=== PATIENT | female | born 1995 | race Caucasian/White ===

== ENCOUNTER 2020-05-18 11:59 | Observation (INO) | payer OTHER ==
[2020-05-18] MEDS ORDERED: SODIUM CHLORIDE 0.9% 1,000 ML IV STA (12:57)
[2020-05-18 13:23] LABS: Basophils % (A) 1 %; Eosinophils # (A) 0.3 k/uL (0-0.7); Eosinophils % (A) 4 %; HCT 39.9 % (34.0-46.0); HGB 13.8 gm/dL (11.4-16.0); Lymphocytes # (A) 3.1 k/uL (1.0-4.8); Lymphocytes % (A) 43 %; MCH 30.4 pg (25.0-35.0); MCHC 34.6 g/dL (31.0-37.0); Mean Platelet Volume 7.8; Monocytes # (A) 0.2 k/uL (0-1.0); Monocytes % (A) 3 %; Neutrophils # (A) 3.5 k/uL (1.3-7.7); Neutrophils % (A) 48 %; Platelet Count 230 k/uL (150-450); RBC 4.54 m/uL (3.80-5.40); RDW 12.5 % (11.5-15.5); WBC 7.2 k/uL (3.8-10.6)
--- NOTE | 2020-05-18 13:29 | ED ---
General Adult HPI - General Chief complaint: Neuro Symptoms/Deficit Stated complaint: lost feeling in legs. Time Seen by Provider: 05/18/20 12:27 Source: patient, RN notes reviewed Mode of arrival: ambulatory Limitations: no limitations - History of Present Illness Initial comments: 25-year-old female with a past medical history of Young's palsy, diabetes mellitus presents to the emergency room for a chief complaint of bilateral leg numbness and weakness. Patient states that about 2-3 weeks ago she started to have tingling below the right knee worse in the right toes. States when she walks a certain way her ankle and her right knee give out infant and she falls. States she has to walk on the lateral aspect of her foot in order for it not to give out. Patient states that about a week and a half ago she started to get the tingling in the left leg as well. Patient states she hasn't been driving because it is difficult to move her foot and press on the gas pedal. Patient states she thought this was related to her diabetes. States she was recently diagnosed with type 1 diabetes and started on insulin in August. States her blood sugars run anywhere between 204 100.Patient has no other complaints at this time including shortness of breath, chest pain, abdominal pain, nausea or vomiting, headache, or visual changes. - Related Data Home Medications Medication Instructions Recorded Confirmed Insulin Glargine,Hum.rec.anlog 30 unit SQ HS 05/18/20 05/18/20 [Lantus Solostar] Insulin Lispro [Admelog] See Protocol SQ AC-TID 05/18/20 05/18/20 Allergies Allergy/AdvReac Type Severity Reaction Status Date / Time No Known Allergies Allergy Verified 05/18/20 12:49 Review of Systems ROS Statement: Those systems with pertinent positive or pertinent negative responses have been documented in the HPI. ROS Other: All systems not noted in ROS Statement are negative. Past Medical History Past Medical History: Diabetes Mellitus 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 History of Any Multi-Drug Resistant Organisms: None Reported Past Surgical History: No Surgical Hx Reported, Orthopedic Surgery Past Psychological History: No Psychological Hx Reported Smoking Status: Current every day smoker Past Alcohol Use History: None Reported Past Drug Use History: None Reported General Exam Limitations: no limitations General appearance: alert, in no apparent distress Head exam: Present: atraumatic, normocephalic, normal inspection Eye exam: Present: normal appearance, PERRL, EOMI. Absent: scleral icterus, conjunctival injection, periorbital swelling ENT exam: Present: normal exam, mucous membranes moist Neck exam: Present: normal inspection, full ROM. Absent: tenderness, meningismus, lymphadenopathy Respiratory exam: Present: normal lung sounds bilaterally. Absent: respiratory distress, wheezes, rales, rhonchi, stridor Cardiovascular Exam: Present: regular rate, normal rhythm, normal heart sounds. Absent: systolic murmur, diastolic murmur, rubs, gallop, clicks GI/Abdominal exam: Present: soft, normal bowel sounds. Absent: distended, tenderness, guarding, rebound, rigid Neurological exam: Present: alert, oriented X3, other. Absent: normal gait (patient using lateral aspect of R foot to ambulate) Expanded Patient oriented to: Present: person, place, time Speech: Present: fluid speech Cranial nerves: EOM's Intact: Normal, Tongue Deviation: Normal, Nystagmus: Normal, Facial Sensation: Normal Cerebellar function: Finger to Nose: Normal, Heel to Mackey: Normal Upper motor neuron: Pronator Drift: Normal Sensory exam: Upper Extremity Light Touch: Normal, Upper Extremity Pin Prick: Normal, Lower Extremity Light Touch: Normal, Lower Extremity Pin Prick: Normal Motor strength exam: RUE: 5, LUE: 5, RLE: 4, LLE: 4 Course Vital Signs 05/18/20 05/18/20 12:01 15:13 Temperature 97.9 F Pulse Rate 97 85 Respiratory 18 16 Rate Blood Pressure 131/77 112/75 O2 Sat by Pulse 98 100 Oximetry Medical Decision Making - Medical Decision Making Vitals are stable. HPI and physical exam as documented. Patient is walking on the lateral aspect of the right foot because she feels her leg is going to give out. DP pulses are 2+ lower extremities, capillary refill less than 2 seconds. Sensation intact in bilateral lower extremities. She was able to walk into the hallway and back without falls over does report one fall at home. She has no other focal neurologic deficits. CT brain is negative. CBC CMP and magnesium are unremarkable. I did speak with Dr. Medina who saw patient in the emergency room. He is recommending to admit patient to medicine and he will consult on her. He is planning on doing further intervention, possibly an LP tomorrow. - Lab Data Result diagrams: 05/18/20 13:07 05/18/20 13:07 Lab Results 05/18/20 05/18/20 05/18/20 Range/Units 13:07 13:07 13:09 WBC 7.2 (3.8-10.6) k/uL RBC 4.54 (3.80-5.40) m/uL Hgb 13.8 (11.4-16.0) gm/dL Hct 39.9 (34.0-46.0) % MCV 88.0 (80.0-100.0) fL MCH 30.4 (25.0-35.0) pg MCHC 34.6 (31.0-37.0) g/dL RDW 12.5 (11.5-15.5) % Plt Count 230 (150-450) k/uL MPV 7.8 Neutrophils % 48 % Lymphocytes % 43 % Monocytes % 3 % Eosinophils % 4 % Basophils % 1 % Neutrophils # 3.5 (1.3-7.7) k/uL Lymphocytes # 3.1 (1.0-4.8) k/uL Monocytes # 0.2 (0-1.0) k/uL Eosinophils # 0.3 (0-0.7) k/uL Basophils # 0.0 (0-0.2) k/uL Sodium 132 L (137-145) mmol/L Potassium 4.2 (3.5-5.1) mmol/L Chloride 102 (98-107) mmol/L Carbon Dioxide 23 (22-30) mmol/L Anion Gap 7 mmol/L BUN 9 (7-17) mg/dL Creatinine 0.45 L (0.52-1.04) mg/dL Est GFR (CKD-EPI)AfAm >90 (>60 ml/min/1.73 sqM) Est GFR (CKD-EPI)NonAf >90 (>60 ml/min/1.73 sqM) Glucose 304 H (74-99) mg/dL Calcium 9.2 (8.4-10.2) mg/dL Magnesium 1.6 (1.6-2.3) mg/dL Total Bilirubin 0.4 (0.2-1.3) mg/dL AST 18 (14-36) U/L ALT 16 (4-34) U/L Alkaline Phosphatase 53 (38-126) U/L Total Protein 6.8 (6.3-8.2) g/dL Albumin 3.9 (3.5-5.0) g/dL Urine Color Light Yellow Urine Appearance Clear (Clear) Urine pH 5.5 (5.0-8.0) Ur Specific [place] 1.043 H (1.001-1.035) Urine Protein Negative (Negative) Urine Glucose (UA) 4+ H (Negative) Urine Ketones 3+ H (Negative) Urine Blood Negative (Negative) Urine Nitrite Negative (Negative) Urine Bilirubin Negative (Negative) Urine Urobilinogen <2.0 (<2.0) mg/dL Ur Leukocyte Esterase Small H (Negative) Urine WBC 2 (0-5) /hpf Ur Squamous Epith Cells 4 (0-4) /hpf Urine Mucus Rare H (None) /hpf Urine HCG, Qual (Not Detectd) Acetone, Qual Negative (Negative) 05/18/20 Range/Units 13:09 WBC (3.8-10.6) k/uL RBC (3.80-5.40) m/uL Hgb (11.4-16.0) gm/dL Hct (34.0-46.0) % MCV (80.0-100.0) fL MCH (25.0-35.0) pg MCHC (31.0-37.0) g/dL RDW (11.5-15.5) % Plt Count (150-450) k/uL MPV Neutrophils % % Lymphocytes % % Monocytes % % Eosinophils % % Basophils % % Neutrophils # (1.3-7.7) k/uL Lymphocytes # (1.0-4.8) k/uL Monocytes # (0-1.0) k/uL Eosinophils # (0-0.7) k/uL Basophils # (0-0.2) k/uL Sodium (137-145) mmol/L Potassium (3.5-5.1) mmol/L Chloride (98-107) mmol/L Carbon Dioxide (22-30) mmol/L Anion Gap mmol/L BUN (7-17) mg/dL Creatinine (0.52-1.04) mg/dL Est GFR (CKD-EPI)AfAm (>60 ml/min/1.73 sqM) Est GFR (CKD-EPI)NonAf (>60 ml/min/1.73 sqM) Glucose (74-99) mg/dL Calcium (8.4-10.2) mg/dL Magnesium (1.6-2.3) mg/dL Total Bilirubin (0.2-1.3) mg/dL AST (14-36) U/L ALT (4-34) U/L Alkaline Phosphatase (38-126) U/L Total Protein (6.3-8.2) g/dL Albumin (3.5-5.0) g/dL Urine Color Urine Appearance (Clear) Urine pH (5.0-8.0) Ur Specific [place] (1.001-1.035) Urine Protein (Negative) Urine Glucose (UA) (Negative) Urine Ketones (Negative) Urine Blood (Negative) Urine Nitrite (Negative) Urine Bilirubin (Negative) Urine Urobilinogen (<2.0) mg/dL Ur Leukocyte Esterase (Negative) Urine WBC (0-5) /hpf Ur Squamous Epith Cells (0-4) /hpf Urine Mucus (None) /hpf Urine HCG, Qual Not Detected (Not Detectd) Acetone, Qual (Negative) Disposition Clinical Impression: Paresthesia, Bilateral leg weakness Disposition: ADMITTED IP TO THIS HOSP Is patient prescribed a controlled substance at d/c from ED?: No Referrals: Chaparro Barney DO [Primary Care Provider] - 1-2 days Time of Disposition: 16:20
[2020-05-18 13:34] LABS: ALT 16 U/L (4-34); AST 18 U/L (14-36); African American GFR (CKD) >90 (>60 ml/min/1.73 sqM); Albumin 3.9 g/dL (3.5-5.0); Alkaline Phosphatase 53 U/L (38-126); Anion Gap 7 mmol/L; Blood Urea Nitrogen 9 mg/dL (7-17); Calcium 9.2 mg/dL (8.4-10.2); Carbon Dioxide 23 mmol/L (22-30); Chloride 102 mmol/L (98-107); Glucose 304 mg/dL (74-99); Magnesium 1.6 mg/dL (1.6-2.3); Non-African American GFR(CKD) >90 (>60 ml/min/1.73 sqM); Potassium 4.2 mmol/L (3.5-5.1); Sodium 132 mmol/L (137-145); Total Bilirubin 0.4 mg/dL (0.2-1.3); Total Protein 6.8 g/dL (6.3-8.2)
[2020-05-18 13:50] LABS: Appearance,Urine Clear (Clear); Bilirubin,Urine Negative (Negative); Blood,Urine Negative (Negative); Color,Urine Light Yellow; Glucose,Urine (UA) 4+ (Negative); Leukocyte Esterase,Urine Small (Negative); Mucus,Urine Rare /hpf; Nitrite,Urine Negative (Negative); PH, Urine 5.5 (5.0-8.0); Protein,Urine Negative (Negative); Specific Gravity,Urine 1.043 (1.001-1.035); Squamous Epithelial Cell,Urine 4 /hpf (0-4); Urobilinogen,Urine <2.0 mg/dL (<2.0); WBC,Urine 2 /hpf (0-5)
[2020-05-18 13:55] LABS: Ketones,Urine 3+ (Negative)
--- NOTE | 2020-05-18 13:58 | CT ---
EXAMINATION TYPE: CT brain wo con DATE OF EXAM: 05/18/2020 COMPARISON: None HISTORY: 25-year-old female leg weakness TECHNIQUE: Examination was done in axial plane without intravenous contrast. Coronal and sagittal r econstructions performed. CT DLP: 1060.4 mGycm Automated exposure control for dose reduction was used. FINDINGS: There is no evidence of acute intracranial hemorrhage, acute ischemic changes, mass, mass-effect, or extra-axial fluid collection. There is no effacement of cerebral sulci or basal subarachnoid cister ns. There is no hydrocephalus. There is no midline shift. Nur-white matter distinction is preserv ed. Leftward nasal septal deviation. Paranasal sinuses and mastoid air cells are well pneumatized. Orbits and globes are intact. IMPRESSION: No acute intracranial abnormality seen.
[2020-05-18] MEDS ORDERED: NALOXONE 0.4 MG/ML 1 ML VIAL IV PRN (16:15)
--- NOTE | 2020-05-18 16:54 | P.CNNES ---
History of Present Illness Consult date: 05/18/20 Requesting physician: Mike Mckeon Reason for Consult: Paresthesias bilateral lower extremities, weakness History of Present Illness: Patient is a 25-year-old female who was diagnosed with 1diabetes on 09/02/2019, presented to the hospital with 2-3 week history of progressive numbness and weakness of lower extremities. Patient states her symptoms started in the right leg with numbness from the knee down all the way to the foot. She assumed it from diabetes and did not pay any attention. About 1-1/2 weeks ago, her left leg also became numb, from knee down to the foot. She has difficulty with walking, with tendency to fall, almost fell multiple times, although actually fell only one time. Patient states her knees buckle up. She denies any numbness in the upper extremities, although feels weakness in both upper and lower extremities. She has difficulty with driving, as she cannot feel the right foot pressing on the gas. Her balance is off. She feels that her toes are more numb as compared to the rest of the lower leg. Denies any significant low back pain. Patient has smoked 1 pack per day for 7 years, drinks alcohol very occasionally. Blood test revealed normal CBC, sodium 132 potassium 4.2, normal renal functions, glucose 304, normal hepatic panel. UA showed 4+ glucose, 3+ ketones and small amount of leukocyte Estrace. Acetone negative. Review of Systems Patient denies any fever or chills. Denies any low back pain. She does have migraines. Patient denies any recent upper respiratory infection, sinus issues, or UTI. Denies headache, problem with the vision, hoarseness, sore throat, dysphagia, diplopia. Denies any problems with bowel or bladder control. She does have some frequency, which she attributes to her previous childbirths, is not worse in the last few weeks. Denies nausea vomiting diarrhea. All other review of systems unremarkable. Past Medical History Past Medical History: Diabetes Mellitus 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 History of Any Multi-Drug Resistant Organisms: None Reported Past Surgical History: No Surgical Hx Reported, Orthopedic Surgery Past Psychological History: No Psychological Hx Reported Smoking Status: Current every day smoker Past Alcohol Use History: None Reported Past Drug Use History: None Reported Medications and Allergies Home Medications Medication Instructions Recorded Confirmed Type Insulin Glargine,Hum.rec.anlog 30 unit SQ HS 05/18/20 05/18/20 History [Lantus Solostar] Insulin Lispro [Admelog] See Protocol SQ AC-TID 05/18/20 05/18/20 History Allergies Allergy/AdvReac Type Severity Reaction Status Date / Time No Known Allergies Allergy Verified 05/18/20 12:49 Physical Examination - Vital Signs Vital Signs: Vital Signs Temp Pulse Resp BP Pulse Ox 05/18/20 15:13 85 16 112/75 100 05/18/20 12:01 97.9 F 97 18 131/77 98 Intake and Output 05/18/20 05/18/20 05/18/20 06:59 14:59 22:59 Other: Weight 76.204 kg On examination patient is a young female, in no acute distress. Patient is alert awake oriented to time place and person. Speech and language functions are normal. Attention, concentration and fund of knowledge is adequate. On cranial nerve examination pupils are round and reacting to light, visual nelson are full on confrontation, extraocular muscles are intact with no nystagmus. Face is symmetric, tongue protrudes to the midline. Palatal elevation sensation normal, hearing and shoulder shrug normal. Facial sensation is normal. On muscle strength testing there is no pronator drift and the strength is normal in the arms except sports recruiter which is 5-bilaterally. In the lower limbs right/left hip flexion 5-/5-, hip abduction, hip adduction, knee extension are all 5/5. Ankle dorsiflexion 4-3+/4+, toe extension 3+/4 to 4+, Peronei 4/5, inversion 4/5. Deep tendon reflexes are symmetric, trace to 1 at both biceps and brachioradialis, 1+ to 2 at triceps, 1-1+ at bilateral knees, and trace at ankles bilaterally. Lantus are downgoing. Sensory touch is decreased from toes up to knees bilaterally. No ataxia for [id number] or rhqy-fl-[id number] testing. Tone is decreased in the right leg. Bulk of muscles is normal. Gait deferred. On general examination there is no carotid bruit or murmur, peripheral pulses are present. No peripheral edema. Chest is clear, abdomen soft nontender. Results - Laboratory Findings CBC and BMP: 05/18/20 13:07 05/18/20 13:07 Abnormal Lab Findings: Abnormal Labs 05/18/20 05/18/20 13:07 13:09 Sodium 132 L Creatinine 0.45 L Glucose 304 H Ur Specific [place] 1.043 H Urine Glucose (UA) 4+ H Urine Ketones 3+ H Ur Leukocyte Esterase Small H Urine Mucus Rare H Assessment and Plan Assessment: * 25-year-old female with recent diagnosis of type 1 diabetes since August 2019, has developed 2 weeks history of progressive numbness of bilateral lower limbs (knees down), with bilateral distal lower extremity weakness, right worse than left. Reflexes are overall hypoactive but still present. Rule out diabetic neuropathy versus mononeuritis multiplex versus AIDP. Plan: * Patient will undergo detailed blood test to evaluate for inflammatory causes. * Hemoglobin A1c * Lumbar puncture to evaluate for cells, glucose, proteins, MS panel, rule out AIDP. * Patient will need EMG and nerve conductions of bilateral lower extremities. * Patient recommended not to sit with legs crossed, as it can affect the common peroneal nerves at the fibular head.
[2020-05-18 17:49] LABS: Glucose,Whole Blood 199 mg/dL (75-99)
[2020-05-18] MEDS: SODIUM CHLORIDE 0.9% 1,000 ML IV SCH (18:35)
[2020-05-18] MEDS: INSULIN ASPART (NovoLOG) 100 UNIT/ML VIAL SQ SCH ×2 (18:37→21:01)
[2020-05-18] MEDS ORDERED: TEMAZEPAM 15 MG CAP PO PRN (20:14)
[2020-05-18] MEDS ORDERED: ALPRAZolam 0.25 MG TAB PO PRN (20:14)
[2020-05-18 20:22] LABS: Glucose,Whole Blood 243 mg/dL (75-99)
--- NOTE | 2020-05-18 20:26 | XR ---
EXAMINATION TYPE: XR chest 1V portable DATE OF EXAM: 05/18/2020 COMPARISON: NONE HISTORY: Pain TECHNIQUE: Single view FINDINGS: Heart and mediastinum are normal. Lungs are clear. Diaphragm is normal. Bony thorax appears normal. There are chest leads. IMPRESSION: Normal chest.
[2020-05-18] MEDS: INSULIN DETEMIR (LEVEMIR) 100 UNIT/ML SYR SQ SCH (21:01)
[2020-05-18] MEDS: ACETAMINOPHEN TAB 500 MG TAB PO PRN (21:01)
[2020-05-18] MEDS: HEPARIN SODIUM,PORCINE 5,000 UNIT/ML 1 ML VIAL SQ SCH (21:34)
--- NOTE | 2020-05-18 22:27 | HP ---
HISTORY AND PHYSICAL DATE OF SERVICE: 05/18/2020 CHIEF COMPLAINTS: Bilateral leg weakness and loss of feeling. HISTORY OF PRESENT ILLNESS: This 25-year-old woman with a past medical history of multiple medical problems, including recently diagnosed diabetes since August, history of Young's palsy, history of nicotine dependence, being followed by Dr. Barney in the outpatient setting, is complaining of bilateral leg weakness and numbness; patient unable to move the legs. The patient also had multiple falls. Numbness is most mostly noted below both knees, and the sensation is reduced up to 70% on the right lower leg and up to 40% on the left lower leg. The patient was admitted for further evaluation and treatment. There is no history of any fever, rigor or chills. No history of headache, loss of consciousness, seizures. No history of any contact with COVID-19. After admission sodium was 132. Blood sugar was elevated at 304. UA was noted. COVID-19 was negative. Serum acetone was also negative. PAST MEDICAL HISTORY: History of recently diagnosed diabetes mellitus, type 2, history of Young's palsy. MEDICATIONS: Medications prior to admission include Lispro before meals t.i.d. and Lantus 30 subcutaneously at bedtime. ALLERGIES: NONE. FAMILY HISTORY: No history of heart disease or strokes in the family. History of diabetes mellitus in the family. SOCIAL HISTORY: History of smoking. No history of alcohol intake. REVIEW OF SYSTEMS: ENT: No diminished hearing. No diminished vision. CARDIOVASCULAR SYSTEM: No angina, palpitations. RESPIRATORY SYSTEM: No cough, hemoptysis. GI: No nausea, vomiting. : No dysuria or retention. NERVOUS SYSTEM: As mentioned earlier. ALLERGY/IMMUNOLOGY: No asthma, hayfever. MUSCULOSKELETAL: As mentioned earlier. HEMATOLOGY/ONCOLOGY: No history of anemia. ENDOCRINE: As mentioned earlier. CONSTITUTIONAL: As mentioned earlier. DERMATOLOGY: Negative. RHEUMATOLOGY: Negative. PSYCHIATRY: As mentioned earlier. PHYSICAL EXAMINATION: Patient is alert, oriented x3. The pulse is 97, blood pressure 131/77, respiration 18, temperature 97.9, pulse ox 98% on room air. HEENT: Conjunctivae normal. NECK: No jugular venous distention. CARDIOVASCULAR SYSTEM: S1, S2 muffled. RESPIRATORY SYSTEM: Breath sounds diminished at the bases. No rhonchi. No crackles. ABDOMEN: Soft, non-tender. No mass palpable. LEGS: No edema. No swelling. NERVOUS SYSTEM: Higher functions as mentioned earlier. Upper limbs are normal. Lower limbs power is grade 4, especially in these upper limbs and sensory abnormality, as mentioned earlier. Gait is ataxic. No signs of cerebellar dysfunction. No significant finger-nose incoordination. SKIN: No ulcer, rash, bleeding. JOINTS: No active deforming arthropathy. LYMPHATICS: No lymph node palpable in neck, axillae or groin. LABS: Sodium 132, glucose 304. ASSESSMENT: 1. Bilateral diabetic peripheral neuropathy, possibly with gait dysfunction and falls. 2. Diabetes mellitus, type 1, uncontrolled with hyperglycemia. 3. Hyponatremia. 4. History of Young's palsy. 5. History of continued nicotine dependence. 6. FULL CODE. RECOMMENDATIONS AND DISCUSSION: In this 25-year-old woman who presented with multiple complex medical issues, we will monitor the patient closely, continue the current medications, continue symptomatic treatment. I recommend resuming the Levemir as well as scale also. Neurology evaluation. Repeat labs. Possible lumbar puncture. A CT of the brain was also done which showed no acute abnormality. Prognosis guarded. Further recommendations to follow. A copy of this dictation is being forwarded to Dr. Barney, who is the primary physician. MMODL / IJN: [id number] /
[2020-05-19 06:20] LABS: Glucose,Whole Blood 186 mg/dL (75-99)
[2020-05-19] MEDS: INSULIN ASPART (NovoLOG) 100 UNIT/ML VIAL SQ SCH ×4 (06:35→21:18)
[2020-05-19] MEDS: ACETAMINOPHEN TAB 500 MG TAB PO PRN ×2 (06:37→16:49)
[2020-05-19] MEDS: PANTOPRAZOLE 40 MG TABLET PO SCH (06:38)
[2020-05-19 07:36] LABS: Basophils % (A) 1 %; Eosinophils # (A) 0.3 k/uL (0-0.7); Eosinophils % (A) 5 %; HCT 35.9 % (34.0-46.0); HGB 12.3 gm/dL (11.4-16.0); Lymphocytes # (A) 2.9 k/uL (1.0-4.8); Lymphocytes % (A) 46 %; MCH 30.8 pg (25.0-35.0); MCHC 34.2 g/dL (31.0-37.0); Mean Platelet Volume 7.5; Monocytes # (A) 0.2 k/uL (0-1.0); Monocytes % (A) 4 %; Neutrophils # (A) 2.7 k/uL (1.3-7.7); Neutrophils % (A) 43 %; Platelet Count 184 k/uL (150-450); RBC 3.99 m/uL (3.80-5.40); RDW 12.2 % (11.5-15.5); WBC 6.3 k/uL (3.8-10.6)
[2020-05-19 07:46] LABS: African American GFR (CKD) >90 (>60 ml/min/1.73 sqM); Anion Gap 2 mmol/L; Blood Urea Nitrogen 12 mg/dL (7-17); Calcium 8.4 mg/dL (8.4-10.2); Carbon Dioxide 27 mmol/L (22-30); Chloride 108 mmol/L (98-107); Glucose 188 mg/dL (74-99); Non-African American GFR(CKD) >90 (>60 ml/min/1.73 sqM); Potassium 3.9 mmol/L (3.5-5.1); Sodium 137 mmol/L (137-145)
[2020-05-19] MEDS: SODIUM CHLORIDE 0.9% 1,000 ML IV SCH ×2 (08:51→17:13)
[2020-05-19] MEDS: HEPARIN SODIUM,PORCINE 5,000 UNIT/ML 1 ML VIAL SQ SCH ×2 (08:52→21:18)
[2020-05-19 10:02] LABS: Prothrombin Time 10.6 sec (9.0-12.0)
[2020-05-19 11:56] LABS: Glucose,Whole Blood 179 mg/dL (75-99)
--- NOTE | 2020-05-19 15:16 | FL ---
PROCEDURE: Lumbar puncture. DATE: 05/19/2020 CLINICAL HISTORY: 25-year-old female with progressive lower extremity weakness and numbness. Trouble walking. COMPLICATIONS: None. SEDATION: See nursing record. The patient and the patient's vital signs were monitored by qualified [facility] radiology personnel. TECHNIQUE: The procedure and potential risks were explained to patient and an informed consent was obtained with teach back. Site and side was verified. A time out was performed. The patient was placed prone on the fluoroscopy table and initially, the L3-L4 level was localized an d the skin was marked and was prepped and draped in the usual sterile fashion. Lidocaine was used for local anesthesia. Utilizing fluoroscopic guidance a 22-gauge spinal needle was placed through the skin. Multiple attempts were made in accessing the subarachnoid space unsuccessfully. A second radiologist made attempts as well. Bone was repeatedly contacted despite widely a patent appearance to the interl aminar space on fluoroscopy. Both sides at L3-L4 were attempted. Subsequently, the left L4-L5 level was attempted with eventual access of the the subarachnoid space. Approximately 9 mL of clear, colorless cerebral spinal fluid was obtained. The patient tolerated the procedure well and was sent back to inpatient room in [facility]. The fluid was sent to the lab for analysis. The estimated blood loss was minimal. The patient's condition was unchanged following the procedure. Fluoroscopy time: 9 minutes 4 seconds Total images: 1 IMPRESSION: Successful accumulation of 9 mL of clear CSF. There was difficulty in accessing the subarachnoid spac e at L3-L4. Successful access was obtained at L4-L5.
[2020-05-19 15:49] LABS: Glucose,CSF 102 mg/dL (40-70); Total Protein,CSF 37 mg/dL (12-60)
--- NOTE | 2020-05-19 15:51 | P.PN ---
Subjective Progress Note Date: 05/19/20 Patient was seen for a follow-up. Offers no new complaints. Continues to have weakness of bilateral lower limbs, with numbness of bilateral lower limbs up to below knees bilaterally. Patient wants to go home, as she has 2 children aged 5 years and 18 months. 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 Patient's children are with her aunt. Objective - Vital Signs Vital signs: Vital Signs Temp 98.7 F 05/19/20 12:00 Pulse 72 05/19/20 14:24 Resp 16 05/19/20 14:24 BP 113/78 05/19/20 14:24 Pulse Ox 98 05/19/20 14:24 Intake & Output 05/18/20 05/19/20 05/19/20 18:59 06:59 18:59 Intake Total 240 540 250 Output Total 300 Balance 240 540 -50 Weight 76.204 kg 76.8 kg Intake: Oral 240 540 250 Output: Urine 300 Other: Voiding Method Toilet Toilet # Voids 2 - Exam Patient's mental status, speech and language functions are normal. Patient has a flat affect. Appears somewhat depressed. Muscle strength is normal in the upper limbs. Patient's hip flexion, knee extension, adduction and abduction are normal. (Right/left) ankle dorsiflexion 4+5-/5, peronei 4+/5, inversion 4+5-/5-, toe extension 4-/4+. Patient's reflexes are trace at the biceps, absent brachioradialis, 1 at the right knee, absent left knee reflex. Both ankles are normal absent even with reinforcement. - Labs CBC & Chem 7: 05/19/20 06:53 05/19/20 06:53 Labs: Abnormal Lab Results - Last 24 Hours (Table) 05/18/20 05/18/20 05/19/20 Range/Units 17:47 20:20 06:19 Chloride (98-107) mmol/L Glucose (74-99) mg/dL POC Glucose (mg/dL) 199 H 243 H 186 H (75-99) mg/dL 05/19/20 05/19/20 Range/Units 06:53 11:46 Chloride 108 H (98-107) mmol/L Glucose 188 H (74-99) mg/dL POC Glucose (mg/dL) 179 H (75-99) mg/dL Assessment and Plan Assessment: * 25-year-old female with recent diagnosis of type 1 diabetes since August 2019, has developed 2 weeks history of progressive numbness of bilateral lower limbs (knees down), with bilateral distal lower extremity weakness, right worse than left. Reflexes are overall hypoactive but were still present yesterday. Rule out diabetic neuropathy versus mononeuritis multiplex versus AIDP/GBS. Patient's reflexes have became further worse today, raising concern for AIDP/GBS. However her muscle strength appears to be slightly better. Plan: * Await blood test results, including Hemoglobin A1c * Lumbar puncture has been completed, results pending. * Patient will need EMG and nerve conductions of bilateral lower extremities. * If CSF proteins are elevated, patient will be started treatment with IVIG. Addendum @ 5 PM: Patient's spinal fluid is clear, colorless, white cells 2, RBC 0. Total protein is 37 (12-60), which is completely normal. CSF glucose is 102. As the spinal fluid proteins is normal, not very sure if we are dealing with AIDP/GBS. We will await blood test results, and decide regarding further management in the morning. Neurology will follow.
[2020-05-19 15:58] LABS: Appearance,CSF Clear; CSF Tube Number 4; Nucleated Cells, CSF 2 u/L (0-5); Red Blood Cell,CSF 0 u/L (0-10)
[2020-05-19] MEDS: MULTIVITAMINS, THERA 1 EACH TAB PO SCH (16:49)
[2020-05-19] MEDS: FOLIC ACID 1 MG TAB PO SCH (16:49)
[2020-05-19] MEDS: THIAMINE 100 MG TAB PO SCH (16:49)
[2020-05-19 17:01] LABS: Glucose,Whole Blood 306 mg/dL (75-99)
[2020-05-19] MEDS: BUTALB/APAP/CAFF 50-325-40MG TAB PO PRN ×2 (17:19→21:17)
--- NOTE | 2020-05-19 17:19 | PN ---
PROGRESS NOTE DATE OF SERVICE: 05/19/2020 This 25-year-old woman who was admitted with bilateral leg weakness and numbness is being evaluated for Guillian-[place] syndrome. Lumbar puncture was arranged by Neurology. Patient also had diabetes mellitus, uncontrolled; the possibility of acute peripheral neuropathy is also being considered. Past medical history reviewed. PHYSICAL EXAMINATION: On exam, alert and oriented x3. Pulse 72, blood pressure 113/70, respiration 16, temperature normal, pulse ox 98% on room air. HEENT: Conjunctivae normal. NECK: No jugular venous distention. CARDIOVASCULAR SYSTEM: S1, S2 muffled. RESPIRATORY SYSTEM: Breath sounds diminished at the bases. No rhonchi. No crackles. ABDOMEN: Soft, non-tender. LEGS: Bilateral weakness and numbness, right more than the left. LYMPHATICS: No lymph node palpable in neck, axillae or groin. SKIN: No ulcer, rash, bleeding. JOINTS: No active deforming arthropathy. LABS: Accu-Cheks 179. CSF glucose 102, protein 37. ASSESSMENT: 1. Bilateral leg weakness, possibly diabetic peripheral neuropathy. 2. Possible acute Guillian-[place] syndrome. 3. Diabetes mellitus, type 1, uncontrolled with hyperglycemia. 4. Hyponatremia. 5. History of Young's palsy. 6. History of nicotine dependence. 7. FULL CODE. RECOMMENDATIONS AND DISCUSSION: I recommend to continue current medications, continue with the monitoring, symptomatic treatment. Closely follow with Neurology. Await cultures. Prognosis is guarded. This patient will require more than 2 nights of hospital stay for diagnosis and treatment of the above-mentioned problems. The patient is quite unsteady on his feet. This patient has significant weakness of both lower limbs in a young patient, so I would strongly recommend full inpatient admission for evaluation and treatment of the above-mentioned medical issues. Prognosis guarded. MMODL / IJN: [id number] /
[2020-05-19 18:29] VITALS: RESP 18
[2020-05-19 20:04] LABS: Glucose,Whole Blood 157 mg/dL (75-99)
[2020-05-19 21:04] LABS: Folate, Serum 14.7 ng/mL
[2020-05-19] MEDS: INSULIN DETEMIR (LEVEMIR) 100 UNIT/ML SYR SQ SCH (21:19)
[2020-05-19 22:54] LABS: Hemoglobin A1C 12.8 % (4.0-6.0)
[2020-05-20 01:50] LABS: Protein, Total 5.4 g/dL (6.2-8.2)
[2020-05-20] MEDS: ACETAMINOPHEN TAB 500 MG TAB PO PRN ×2 (03:51→10:19)
[2020-05-20 05:56] LABS: Glucose,Whole Blood 304 mg/dL (75-99)
[2020-05-20] MEDS: INSULIN ASPART (NovoLOG) 100 UNIT/ML VIAL SQ SCH ×2 (06:11→12:10)
[2020-05-20] MEDS: PANTOPRAZOLE 40 MG TABLET PO SCH (06:11)
[2020-05-20 07:38] LABS: Basophils % (A) 0 %; Eosinophils # (A) 0.2 k/uL (0-0.7); Eosinophils % (A) 3 %; HCT 38.8 % (34.0-46.0); HGB 12.8 gm/dL (11.4-16.0); Lymphocytes # (A) 2.9 k/uL (1.0-4.8); Lymphocytes % (A) 41 %; MCV 90.8 fL (80.0-100.0); Mean Platelet Volume 7.8; Monocytes # (A) 0.2 k/uL (0-1.0); Monocytes % (A) 3 %; Neutrophils # (A) 3.5 k/uL (1.3-7.7); Neutrophils % (A) 51 %; Platelet Count 199 k/uL (150-450); RBC 4.27 m/uL (3.80-5.40); RDW 12.2 % (11.5-15.5); WBC 6.9 k/uL (3.8-10.6)
[2020-05-20 07:48] LABS: African American GFR (CKD) >90 (>60 ml/min/1.73 sqM); Anion Gap -1 mmol/L; Blood Urea Nitrogen 13 mg/dL (7-17); Calcium 9.1 mg/dL (8.4-10.2); Carbon Dioxide 27 mmol/L (22-30); Chloride 109 mmol/L (98-107); Glucose 227 mg/dL (74-99); Non-African American GFR(CKD) >90 (>60 ml/min/1.73 sqM); Potassium 4.3 mmol/L (3.5-5.1); Sodium 135 mmol/L (137-145)
[2020-05-20] MEDS: BUTALB/APAP/CAFF 50-325-40MG TAB PO PRN (07:59)
[2020-05-20] MEDS: HEPARIN SODIUM,PORCINE 5,000 UNIT/ML 1 ML VIAL SQ SCH (08:06)
[2020-05-20] MEDS: SODIUM CHLORIDE 0.9% 1,000 ML IV SCH (08:06)
[2020-05-20] MEDS ORDERED: IBUPROFEN 400 MG TAB PO PRN (08:46)
[2020-05-20] MEDS ORDERED: NICOTINE 14MG/24HR PATCH TRANSDERM SCH (09:00)
[2020-05-20 11:32] VITALS: BP 120/63; PULSE 68; TEMP 98.1
[2020-05-20 11:52] VITALS: BMI 25.5
[2020-05-20 12:06] LABS: Glucose,Whole Blood 217 mg/dL (75-99)
[2020-05-20] MEDS: THIAMINE 100 MG TAB PO SCH (12:10)
[2020-05-20] MEDS: FOLIC ACID 1 MG TAB PO SCH (12:10)
[2020-05-20] MEDS: MULTIVITAMINS, THERA 1 EACH TAB PO SCH (12:10)
--- NOTE | 2020-05-20 12:35 | P.PN ---
Subjective Progress Note Date: 05/20/20 Patient states her symptoms have much improved. Numbness in the lower legs from knees down has much improved with only slight tingling sensation. Patient feels her ankles and toes are also improved from motor standpoint. Complains of some back soreness. Patient wants to go home, as she has 2 children aged 5 years and 18 months. 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 Patient's children are with her aunt. Objective - Vital Signs Vital signs: Vital Signs Temp 98.1 F 05/20/20 11:31 Pulse 68 05/20/20 11:31 Resp 18 05/20/20 11:31 BP 120/63 05/20/20 11:31 Pulse Ox 98 05/20/20 11:31 Intake & Output 05/19/20 05/20/20 05/20/20 18:59 06:59 18:59 Intake Total 250 950 500 Output Total 300 300 Balance -50 650 500 Weight 76.3 kg 76.3 kg Intake: Oral 250 950 500 Output: Urine 300 300 Other: Voiding Method Toilet Toilet # Voids 2 - Exam Patient's mental status, speech and language functions are normal. Muscle strength is normal in the upper limbs. Patient's strength in the lower extremities also appears normal including ankles and toes. Ankle dorsiflexion, inversion and eversion all appears normal bilaterally. Patient does appear to be diffusely areflexic at this time. - Labs CBC & Chem 7: 05/20/20 07:01 05/20/20 07:01 Labs: Abnormal Lab Results - Last 24 Hours (Table) 05/19/20 05/19/20 05/19/20 Range/Units 06:53 14:37 15:00 Sodium (137-145) mmol/L Chloride (98-107) mmol/L Glucose (74-99) mg/dL POC Glucose (mg/dL) (75-99) mg/dL Hemoglobin A1c 12.8 H (4.0-6.0) % Total Protein (PEP) 5.4 L (6.2-8.2) g/dL CSF Glucose 102 H (40-70) mg/dL 05/19/20 05/19/20 05/20/20 Range/Units 16:56 20:01 05:55 Sodium (137-145) mmol/L Chloride (98-107) mmol/L Glucose (74-99) mg/dL POC Glucose (mg/dL) 306 H 157 H 304 H (75-99) mg/dL Hemoglobin A1c (4.0-6.0) % Total Protein (PEP) (6.2-8.2) g/dL CSF Glucose (40-70) mg/dL 05/20/20 05/20/20 Range/Units 07:01 11:56 Sodium 135 L (137-145) mmol/L Chloride 109 H (98-107) mmol/L Glucose 227 H (74-99) mg/dL POC Glucose (mg/dL) 217 H (75-99) mg/dL Hemoglobin A1c (4.0-6.0) % Total Protein (PEP) (6.2-8.2) g/dL CSF Glucose (40-70) mg/dL Microbiology - Last 24 Hours (Table) 05/19/20 14:37 CSF Gram Stain - Preliminary Cerebral Spinal Fluid CSF Culture - Preliminary 05/19/20 11:00 Urine Culture - Preliminary Urine,Clean Catch Assessment and Plan Assessment: * Type 1 diabetes, poorly controlled * Peripheral polyneuropathy, possible diabetes related, rule out inflammatory causes. Plan: * Patient's spinal fluid is clear, colorless, white cells 2, RBC 0. Total p rotein is 37 (12-60), which is completely normal. CSF glucose is 102. Guillain-[place] syndrome appears less likely with normal proteins. Patient's sensations with numbness and tingling in the lower extremities has significantly improved. Her muscle strength has also improved and on examination appears normal bilaterally. However patient is diffusely areflexic. As patient has clinically improved, and with normal spinal fluid protein, treatment with IVIG is not indicated. Recommend patient follow up with neurologist as an outpatient for EMG and nerve conduction studies of bilateral lower limbs to evaluate for demyelinating versus axonal type of neuropathy. If she does have demyelinating polyneuropathy, and especially if symptoms gets worse, then IVIG could still be considered as an outpatient. * Patient definitely needs to follow-up with her primary physician to optimize control of diabetes, to target A1c <7.0. * Patient's B12 is 554, folate 14.7, ANDRES negative, RPR negative. Rest of the CSF and blood tests results are still pending. * Clear for patient to be discharged home, and follow-up with a neurologist in 1-2 weeks.
--- NOTE | 2020-05-20 19:21 | DS ---
DISCHARGE SUMMARY DATE OF SERVICE: 05/20/2020. FINAL DIAGNOSES: 1. Bilateral leg weakness, possible diabetic peripheral neuropathy. 2. Guillain [place] syndrome unlikely per Neurology. 3. Diabetes mellitus type 2, uncontrolled with hyperglycemia. 4. Hyponatremia. 5. History of Young's palsy. 6. History of nicotine dependence. 7. FULL CODE. DISCHARGE DISPOSITION: Patient will be discharged in stable condition with guarded prognosis. Neurology cleared the patient. HISTORY OF PRESENT ILLNESS: This 25-year-old woman with a past medical history of multiple medical problems admitted with bilateral leg weakness. The patient was evaluated. Peripheral neuropathy considered. Dr. Medina from neurology saw the patient and because of concerns of the Guillain [place] syndrome, lumbar puncture was done. The test were basically negative including the protein which was only 37. Patient was treated with insulin. Patient improved significantly. Hemoglobin A1c was found to be 12.8. Recommended endocrine consultation and possible consideration for insulin pump also at this time. On exam, vitals are stable. Cardiovascular: S1, S2. Abdomen soft. Nervous system: Minimal weakness and numbness on the left present. DISCHARGE ADVICE AND MEDICATIONS: 1. Diet is cardiac. 2. Activity limited until followup. 3. Follow up with Dr. Moore in 1 week. 4[address] Follow up Dr. Chaparro Barney in 1-2 days. 5. Follow up with Dr. Ware Neurology as recommended. DISCHARGE MEDICATIONS: 1. Admelog as before. 2. Lantus 30 units subcu q.h.s. 3. Butalbital 50 mg q.4 p.r.n. 4. Folic acid 1 mg daily. 5. Motrin p.r.n. 6. Multivitamins one p.o. daily. 7. Tylenol p.r.n. 8. Vitamin B1 100 mg p.o. daily. MMODL / IJN: [id number] /
[2020-05-23 13:06] LABS: IgG - CSF 1.7 mg/dL (0.0 - 3.4); IgG Synthesis Rate 0.04 mg/day (0.00 - 3.00); IgG/Albumin Index (CSF) 0.73 (0.00 - 0.77); Immunoglobulin G 830 mg/dL (700 - 1600)
[2020-05-23 15:02] LABS: Albumin 3.17 g/dL (3.80-4.90); Gamma Globulin 0.76 g/dL (0.70-1.50)
[2020-05-24 10:41] LABS: VDRL, Qualitative CSF Nonreactive (Nonreactive)
== END 2020-05-20 13:07 | disposition home or self-care (01) ==
LOC: EC 11:59 → 3SCARD 16:15
PROVIDERS: ADMIT Hospitalist; ATTEND Hospitalist
DX: R20.2 Paresthesia of skin (principal); R53.1 Weakness; E87.1 Hypo-osmolality and hyponatremia; E10.65 Type 1 diabetes mellitus with hyperglycemia; G51.0 Bell's palsy; Z20.828 Contact with and (suspected) exposure to other viral communicable diseases; F17.210 Nicotine dependence, cigarettes, uncomplicated; Z91.81 History of falling; Z79.4 Long term (current) use of insulin; Z83.3 Family history of diabetes mellitus
CPT/HCPCS: 96372; 99285; 36415; 83921; 87496; 87498; 87529; 87798 ×2; 86592; 88108; 84157; 80053; 80048 ×2; 82945; 82040; 82042; 82784 ×4; 83916; 82607; 82746; 82164; 82009; 83735; 85025 ×3; 85610; 89050; 81001; 81025; 87252; 86618; 84165; 86780; 86038; 87070; 87086; 87205; 87077; 87186; 86334; 83036; 87635; 62328; 71045; 70450; G0378 ×3; S4990; J2001; J1644

== ENCOUNTER → 2021-06-29 | Outpatient (CLI) | payer OTHER ==
[2021-06-29 18:56] LABS: Chol/HDL Ratio 3.32 Ratio; Glucose 71 mg/dL (70-110); LDL Cholesterol,Calculated 113.1 mg/dL (0.0-131.0); VLDL Calculation 18.88 mg/dL (5.00-40.00)
[2021-06-30 00:18] LABS: Microalbumin Creatinine Ratio <30 mg/g Creat (0-30); Urine Creatinine 10.8 mg/dL (28.0-217.0)
[2021-06-30 08:25] LABS: C-Peptide 0.11 ng/mL (0.81-3.85)
== END | disposition home or self-care (01) ==
LOC: LABWHC1 10:43
PROVIDERS: ATTEND Family Medicine
DX: E10.40 Type 1 diabetes mellitus with diabetic neuropathy, unspecified (principal); R53.83 Other fatigue
CPT/HCPCS: 36415; 80061; 82043; 82306; 82570; 82947; 83036; 84439; 84443; 84681

== ENCOUNTER 2021-08-24 09:37 | Inpatient (IN) | payer OTHER ==
[2021-08-24 09:50] LABS: Glucose,Whole Blood 517 mg/dL (75-99)
[2021-08-24] MEDS ORDERED: SODIUM CHLORIDE 0.9% 2,500 ML IV STA (10:44)
[2021-08-24] MEDS ORDERED: ACETAMINOPHEN TAB 325 MG TAB PO STA (10:44)
[2021-08-24 10:53] LABS: Basophils # (A) 0.1 k/uL (0-0.2); Basophils % (A) 0 %; Eosinophils % (A) 0 %; HCT 46.4 % (34.0-46.0); HGB 15.1 gm/dL (11.4-16.0); Lymphocytes % (A) 14 %; MCH 30.8 pg (25.0-35.0); MCHC 32.5 g/dL (31.0-37.0); MCV 94.8 fL (80.0-100.0); Mean Platelet Volume 7.8; Monocytes # (A) 0.5 k/uL (0-1.0); Monocytes % (A) 3 %; Neutrophils # (A) 12.1 k/uL (1.3-7.7); Neutrophils % (A) 81 %; Platelet Count 299 k/uL (150-450); RDW 12.7 % (11.5-15.5); WBC 14.9 k/uL (3.8-10.6)
--- NOTE | 2021-08-24 10:56 | ED ---
Recheck HPI - General Chief Complaint: Recheck/Abnormal Lab/Rx Stated Complaint: nausea, hyperglycemia Time Seen by Provider: 08/24/21 10:24 Source: patient, EMS, RN notes reviewed Mode of arrival: EMS Limitations: no limitations - History of Present Illness Initial Comments: This is a 26-year-old female who presents to the emergency department for riya rns of being in DKA. She had an insulin pump put in 5 days ago, and today she has been experiencing lethargy, nausea, and diffuse body aches. Denies any chest pain, shortness of breath, or recent illness. Bedside glucose 517. She has been in DKA several times in the past, however she has not been in DKA for several years and has not been treated at this facility for DKA. Patient is noted to be very drowsy on exam and ability to obtain history is limited. MD Complaint: abnormal lab Onset/Timin -: days(s) - Related Data Home Medications Medication Instructions Recorded Confirmed Albuterol Inhaler [Ventolin Hfa 1 puff INHALATION RT-Q6H PRN 08/24/21 08/24/21 Inhaler] Fluticasone Propionate [Flovent 2 puff INHALATION RT-BID 08/24/21 08/24/21 Hfa 220 mcg] Insulin Aspart (For Pump) [NovoLOG 0.01 unit SQ-PUMP CONTINUOUS 08/24/21 08/24/21 (For Pump)] Allergies Allergy/AdvReac Type Severity Reaction Status Date / Time dulaglutide [From [facility]] Allergy Rash/Hives Verified 08/24/21 10:42 Review of Systems ROS Statement: Those systems with pertinent positive or pertinent negative responses have been documented in the HPI. ROS Other: All systems not noted in ROS Statement are negative. Constitutional: Denies: fever, chills ENT: Denies: ear pain, throat pain Respiratory: Denies: cough, dyspnea Endocrine: Reports: fatigue Gastrointestinal: Reports: nausea, vomiting. Denies: abdominal pain, diarrhea Genitourinary: Denies: urgency, dysuria Musculoskeletal: Reports: myalgia. Denies: back pain Skin: Denies: rash Neurological: Reports: weakness. Denies: headache 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 History of Any Multi-Drug Resistant Organisms: None Reported Past Surgical History: Orthopedic Surgery Past Anesthesia/Blood Transfusion Reactions: No Reported Reaction Past Psychological History: No Psychological Hx Reported Smoking Status: Current every day smoker Past Drug Use History: None Reported, Methamphetamine - Past Family History Mother History Unknown: Yes Father History Unknown: Yes General Exam Limitations: no limitations General appearance: alert, lethargic, in distress Head exam: Present: atraumatic, normocephalic, normal inspection Eye exam: Present: normal appearance, PERRL, EOMI. Absent: scleral icterus, conjunctival injection, periorbital swelling ENT exam: Present: mucous membranes dry, normal external ear exam Neck exam: Present: normal inspection. Absent: tenderness, meningismus, lymphadenopathy Respiratory exam: Present: normal lung sounds bilaterally. Absent: respiratory distress, wheezes, rales, rhonchi, stridor Cardiovascular Exam: Present: regular rate, normal rhythm, normal heart sounds. Absent: systolic murmur, diastolic murmur, rubs, gallop, clicks Neurological exam: Present: alert, oriented X3, CN II-XII intact Skin exam: Present: warm, dry, intact, normal color. Absent: rash Course Vital Signs 08/24/21 08/24/21 09:55 12:18 Temperature 98.2 F Pulse Rate 115 H 113 H Respiratory 22 18 Rate Blood Pressure 131/78 117/54 O2 Sat by Pulse 98 100 Oximetry Medical Decision Making - Medical Decision Making This a 26-year-old female who presents emergency department for elevated blood sugar, lethargy, and nausea. Blood sugar measured at 574, acetone positive, CO2 of 8, urine has 4+ ketones and 4+ sugar, anion gap of 28. Patient given bolus of 2500 mL of normal saline. Magnesium, phosphorus, and potassium replacement not indicated. Patient started on insulin drip with hypoglycemia protocol. Insulin pump turned off and removed prior to starting insulin drip. Patient will be admitted to the ICU with wood machinist consult. This case was discussed in detail with the attending ED physician. Presentation, findings, and treatment plan discussed in detail as well. - Lab Data Result diagrams: 08/24/21 10:46 08/24/21 21:51 Lab Results 08/24/21 08/24/21 08/24/21 Range/Units 09:44 10:46 10:46 WBC 14.9 H (3.8-10.6) k/uL RBC 4.90 (3.80-5.40) m/uL Hgb 15.1 (11.4-16.0) gm/dL Hct 46.4 H (34.0-46.0) % MCV 94.8 (80.0-100.0) fL MCH 30.8 (25.0-35.0) pg MCHC 32.5 (31.0-37.0) g/dL RDW 12.7 (11.5-15.5) % Plt Count 299 (150-450) k/uL MPV 7.8 Neutrophils % 81 % Lymphocytes % 14 % Monocytes % 3 % Eosinophils % 0 % Basophils % 0 % Neutrophils # 12.1 H (1.3-7.7) k/uL Lymphocytes # 2.0 (1.0-4.8) k/uL Monocytes # 0.5 (0-1.0) k/uL Eosinophils # 0.0 (0-0.7) k/uL Basophils # 0.1 (0-0.2) k/uL Sodium 137 (137-145) mmol/L Potassium 5.0 (3.5-5.1) mmol/L Chloride 101 (98-107) mmol/L Carbon Dioxide 8 L* (22-30) mmol/L Anion Gap 28 mmol/L BUN 19 H (7-17) mg/dL Creatinine 0.76 (0.52-1.04) mg/dL Est GFR (CKD-EPI)AfAm >90 (>60 ml/min/1.73 sqM) Est GFR (CKD-EPI)NonAf >90 (>60 ml/min/1.73 sqM) Glucose 574 H* (74-99) mg/dL POC Glucose (mg/dL) 517 H (75-99) mg/dL POC Glu Director Of Cardiology ID [place], [place] Calcium 10.4 H (8.4-10.2) mg/dL Phosphorus 7.0 H (2.5-4.5) mg/dL Magnesium 1.7 (1.6-2.3) mg/dL Total Bilirubin 0.9 (0.2-1.3) mg/dL AST 23 (14-36) U/L ALT 21 (4-34) U/L Alkaline Phosphatase 68 (38-126) U/L Total Protein 8.3 H (6.3-8.2) g/dL Albumin 4.9 (3.5-5.0) g/dL Urine Color Urine Appearance (Clear) Urine pH (5.0-8.0) Ur Specific [place] (1.001-1.035) Urine Protein (Negative) Urine Glucose (UA) (Negative) Urine Ketones (Negative) Urine Blood (Negative) Urine Nitrite (Negative) Urine Bilirubin (Negative) Urine Urobilinogen (<2.0) mg/dL Ur Leukocyte Esterase (Negative) Urine RBC (0-5) /hpf Urine WBC (0-5) /hpf Ur Squamous Epith Cells (0-4) /hpf Urine Mucus (None) /hpf Urine HCG, Qual (Not Detectd) Acetone, Qual Positive (Negative) Coronavirus (PCR) (Not Detectd) Influenza Type A RNA (Not Detectd) Influenza Type B (PCR) (Not Detectd) 08/24/21 08/24/21 08/24/21 Range/Units 10:46 10:46 11:29 WBC (3.8-10.6) k/uL RBC (3.80-5.40) m/uL Hgb (11.4-16.0) gm/dL Hct (34.0-46.0) % MCV (80.0-100.0) fL MCH (25.0-35.0) pg MCHC (31.0-37.0) g/dL RDW (11.5-15.5) % Plt Count (150-450) k/uL MPV Neutrophils % % Lymphocytes % % Monocytes % % Eosinophils % % Basophils % % Neutrophils # (1.3-7.7) k/uL Lymphocytes # (1.0-4.8) k/uL Monocytes # (0-1.0) k/uL Eosinophils # (0-0.7) k/uL Basophils # (0-0.2) k/uL Sodium (137-145) mmol/L Potassium (3.5-5.1) mmol/L Chloride (98-107) mmol/L Carbon Dioxide (22-30) mmol/L Anion Gap mmol/L BUN (7-17) mg/dL Creatinine (0.52-1.04) mg/dL Est GFR (CKD-EPI)AfAm (>60 ml/min/1.73 sqM) Est GFR (CKD-EPI)NonAf (>60 ml/min/1.73 sqM) Glucose (74-99) mg/dL POC Glucose (mg/dL) (75-99) mg/dL POC Glu Director Of Cardiology ID Calcium (8.4-10.2) mg/dL Phosphorus (2.5-4.5) mg/dL Magnesium (1.6-2.3) mg/dL Total Bilirubin (0.2-1.3) mg/dL AST (14-36) U/L ALT (4-34) U/L Alkaline Phosphatase (38-126) U/L Total Protein (6.3-8.2) g/dL Albumin (3.5-5.0) g/dL Urine Color Light Yellow Urine Appearance Clear (Clear) Urine pH 5.0 (5.0-8.0) Ur Specific [place] 1.030 (1.001-1.035) Urine Protein Negative (Negative) Urine Glucose (UA) 4+ H (Negative) Urine Ketones 4+ H (Negative) Urine Blood Moderate H (Negative) Urine Nitrite Negative (Negative) Urine Bilirubin Negative (Negative) Urine Urobilinogen <2.0 (<2.0) mg/dL Ur Leukocyte Esterase Negative (Negative) Urine RBC 2 (0-5) /hpf Urine WBC 1 (0-5) /hpf Ur Squamous Epith Cells 1 (0-4) /hpf Urine Mucus Rare H (None) /hpf Urine HCG, Qual Not Detected (Not Detectd) Acetone, Qual (Negative) Coronavirus (PCR) (Not Detectd) Influenza Type A RNA Not Detected (Not Detectd) Influenza Type B (PCR) Not Detected (Not Detectd) 08/24/21 08/24/21 08/24/21 Range/Units 11:29 12:11 12:41 WBC (3.8-10.6) k/uL RBC (3.80-5.40) m/uL Hgb (11.4-16.0) gm/dL Hct (34.0-46.0) % MCV (80.0-100.0) fL MCH (25.0-35.0) pg MCHC (31.0-37.0) g/dL RDW (11.5-15.5) % Plt Count (150-450) k/uL MPV Neutrophils % % Lymphocytes % % Monocytes % % Eosinophils % % Basophils % % Neutrophils # (1.3-7.7) k/uL Lymphocytes # (1.0-4.8) k/uL Monocytes # (0-1.0) k/uL Eosinophils # (0-0.7) k/uL Basophils # (0-0.2) k/uL Sodium (137-145) mmol/L Potassium (3.5-5.1) mmol/L Chloride (98-107) mmol/L Carbon Dioxide (22-30) mmol/L Anion Gap mmol/L BUN (7-17) mg/dL Creatinine (0.52-1.04) mg/dL Est GFR (CKD-EPI)AfAm (>60 ml/min/1.73 sqM) Est GFR (CKD-EPI)NonAf (>60 ml/min/1.73 sqM) Glucose (74-99) mg/dL POC Glucose (mg/dL) 568 H 498 H (75-99) mg/dL POC Glu Director Of Cardiology ID ThereseSavannaon Jessica Calcium (8.4-10.2) mg/dL Phosphorus (2.5-4.5) mg/dL Magnesium (1.6-2.3) mg/dL Total Bilirubin (0.2-1.3) mg/dL AST (14-36) U/L ALT (4-34) U/L Alkaline Phosphatase (38-126) U/L Total Protein (6.3-8.2) g/dL Albumin (3.5-5.0) g/dL Urine Color Urine Appearance (Clear) Urine pH (5.0-8.0) Ur Specific [place] (1.001-1.035) Urine Protein (Negative) Urine Glucose (UA) (Negative) Urine Ketones (Negative) Urine Blood (Negative) Urine Nitrite (Negative) Urine Bilirubin (Negative) Urine Urobilinogen (<2.0) mg/dL Ur Leukocyte Esterase (Negative) Urine RBC (0-5) /hpf Urine WBC (0-5) /hpf Ur Squamous Epith Cells (0-4) /hpf Urine Mucus (None) /hpf Urine HCG, Qual (Not Detectd) Acetone, Qual (Negative) Coronavirus (PCR) Not Detected (Not Detectd) Influenza Type A RNA (Not Detectd) Influenza Type B (PCR) (Not Detectd) 08/24/21 08/24/21 Range/Units 13:03 13:28 WBC (3.8-10.6) k/uL RBC (3.80-5.40) m/uL Hgb (11.4-16.0) gm/dL Hct (34.0-46.0) % MCV (80.0-100.0) fL MCH (25.0-35.0) pg MCHC (31.0-37.0) g/dL RDW (11.5-15.5) % Plt Count (150-450) k/uL MPV Neutrophils % % Lymphocytes % % Monocytes % % Eosinophils % % Basophils % % Neutrophils # (1.3-7.7) k/uL Lymphocytes # (1.0-4.8) k/uL Monocytes # (0-1.0) k/uL Eosinophils # (0-0.7) k/uL Basophils # (0-0.2) k/uL Sodium (137-145) mmol/L Potassium (3.5-5.1) mmol/L Chloride (98-107) mmol/L Carbon Dioxide (22-30) mmol/L Anion Gap mmol/L BUN (7-17) mg/dL Creatinine (0.52-1.04) mg/dL Est GFR (CKD-EPI)AfAm (>60 ml/min/1.73 sqM) Est GFR (CKD-EPI)NonAf (>60 ml/min/1.73 sqM) Glucose (74-99) mg/dL POC Glucose (mg/dL) 390 H 390 H (75-99) mg/dL POC Glu Director Of Cardiology ID Therese, [place] Therese, [place] Calcium (8.4-10.2) mg/dL Phosphorus (2.5-4.5) mg/dL Magnesium (1.6-2.3) mg/dL Total Bilirubin (0.2-1.3) mg/dL AST (14-36) U/L ALT (4-34) U/L Alkaline Phosphatase (38-126) U/L Total Protein (6.3-8.2) g/dL Albumin (3.5-5.0) g/dL Urine Color Urine Appearance (Clear) Urine pH (5.0-8.0) Ur Specific [place] (1.001-1.035) Urine Protein (Negative) Urine Glucose (UA) (Negative) Urine Ketones (Negative) Urine Blood (Negative) Urine Nitrite (Negative) Urine Bilirubin (Negative) Urine Urobilinogen (<2.0) mg/dL Ur Leukocyte Esterase (Negative) Urine RBC (0-5) /hpf Urine WBC (0-5) /hpf Ur Squamous Epith Cells (0-4) /hpf Urine Mucus (None) /hpf Urine HCG, Qual (Not Detectd) Acetone, Qual (Negative) Coronavirus (PCR) (Not Detectd) Influenza Type A RNA (Not Detectd) Influenza Type B (PCR) (Not Detectd) - EKG Data Rate: tachycardia EKG Comments: Sinus tachycardia with abnormal rhythm. Ventricular rate 109 beats per minute, ME interval 135 ms, QRS duration 88 ms, QTC 414 ms. Disposition Clinical Impression: DKA (diabetic ketoacidosis) Disposition: ADMITTED IP TO THIS HOSP
[2021-08-24 11:01] LABS: Appearance,Urine Clear (Clear); Bilirubin,Urine Negative (Negative); Blood,Urine Moderate (Negative); Color,Urine Light Yellow; Glucose,Urine (UA) 4+ (Negative); Leukocyte Esterase,Urine Negative (Negative); Mucus,Urine Rare /hpf; Nitrite,Urine Negative (Negative); Protein,Urine Negative (Negative); RBC,Urine 2 /hpf (0-5); Squamous Epithelial Cell,Urine 1 /hpf (0-4); Urobilinogen,Urine <2.0 mg/dL (<2.0); WBC,Urine 1 /hpf (0-5)
[2021-08-24 11:12] LABS: ALT 21 U/L (4-34); AST 23 U/L (14-36); African American GFR (CKD) >90 (>60 ml/min/1.73 sqM); Albumin 4.9 g/dL (3.5-5.0); Alkaline Phosphatase 68 U/L (38-126); Anion Gap 28 mmol/L; Blood Urea Nitrogen 19 mg/dL (7-17); Calcium 10.4 mg/dL (8.4-10.2); Chloride 101 mmol/L (98-107); Magnesium 1.7 mg/dL (1.6-2.3); Non-African American GFR(CKD) >90 (>60 ml/min/1.73 sqM); Sodium 137 mmol/L (137-145); Total Bilirubin 0.9 mg/dL (0.2-1.3); Total Protein 8.3 g/dL (6.3-8.2)
[2021-08-24 11:23] LABS: Carbon Dioxide 8 mmol/L (22-30); Glucose 574 mg/dL (74-99)
[2021-08-24 11:49] LABS: Ketones,Urine 4+ (Negative)
[2021-08-24 12:12] LABS: Glucose,Whole Blood 568 mg/dL (75-99)
[2021-08-24] MEDS: INSULIN REGULAR 100 UNIT in SODIUM CHLORIDE 0.9% 100 ML IV SCH ×2 (12:16→21:00)
[2021-08-24] MEDS: SODIUM CHLORIDE 0.9% 1,000 ML IV SCH ×2 (12:17→16:44)
[2021-08-24] MEDS ORDERED: ONDANSETRON 4 MG/2 ML VIAL IVP PRN (12:25)
[2021-08-24 12:43] LABS: Glucose,Whole Blood 498 mg/dL (75-99)
[2021-08-24 13:04] LABS: Glucose,Whole Blood 390 mg/dL (75-99)
--- NOTE | 2021-08-24 13:06 | P.HPIM ---
History of Present Illness This is a pleasant 26 years old female who presents complaining of from nausea vomiting and abdominal pain and back pain. Patient was started on insulin pump about 5 days ago. Patient is very lethargic, keeps eyes close most of the time, however with prompt questioning she answers all questions appropriately, she is fully awake a nd oriented but looks very exhausted and tired. She admits off nausea vomiting and abdominal pain of 2 days' duration but also cough and yellowish phlegm without chest pain for the last 3 days. She does not report diarrhea or dysuria but states she has increased frequency of urination. Also she is complaining of from back pain. Patient also has some vaginal discharge, as per patient her PCP diagnosed her with fungal infection as she states. She stated she was taken 35 units of long acting insulin twice daily and 10 units with meals prior to the insulin pump. She fits nicotine but not cooled or illicit drugs. Review of Systems CONSTITUTIONAL: No fever, no flushing HEENT: No recent visual problems or hearing problems. Denied any sore throat. CARDIOVASCULAR: No orthopnea, PND, no palpitations, no syncope. PULMONARY: No shortness of breath, no cough, no hemoptysis. GASTROINTESTINAL: No constipation, . Normoactive bowel sounds. NEUROLOGICAL: No headaches, no weakness, no numbness. HEMATOLOGICAL: Denies any bleeding or petechiae. GENITOURINARY: Denies any burning micturition, or urgency. MUSCULOSKELETAL/RHEUMATOLOGICAL: Denies any joint pain, swelling, or any muscle pain. ENDOCRINE: Denies any polyuria or polydipsia. 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 History of Any Multi-Drug Resistant Organisms: None Reported Past Surgical History: Orthopedic Surgery Past Anesthesia/Blood Transfusion Reactions: No Reported Reaction Past Psychological History: No Psychological Hx Reported Smoking Status: Current every day smoker Past Drug Use History: None Reported, Methamphetamine - Past Family History Mother History Unknown: Yes Father History Unknown: Yes Medications and Allergies Home Medications Medication Instructions Recorded Confirmed Type Albuterol Inhaler [Ventolin Hfa 1 puff INHALATION RT-Q6H PRN 08/24/21 08/24/21 History Inhaler] Fluticasone Propionate [Flovent 2 puff INHALATION RT-BID 08/24/21 08/24/21 History Hfa 220 mcg] Insulin Aspart (For Pump) [NovoLOG 0.01 unit SQ-PUMP CONTINUOUS 08/24/21 08/24/21 History (For Pump)] Allergies Allergy/AdvReac Type Severity Reaction Status Date / Time dulaglutide [From [facility]] Allergy Rash/Hives Verified 08/24/21 10:42 Physical Exam Vitals: Vital Signs Temp Pulse Resp BP Pulse Ox 08/24/21 12:18 113 H 18 117/54 100 08/24/21 09:55 98.2 F 115 H 22 131/78 98 Intake and Output 08/23/21 08/24/21 08/24/21 22:59 06:59 14:59 Intake Total 4.19 Balance 4.19 Intake: Intake, IV Titration 4.19 Amount Insulin Regular 100 unit 4.19 In Sodium Chloride 0.9% 100 ml @ 0.1 UNITS/KG/HR 8.109 mls/hr IV .[id number] [facility] Rx#:[id number] Other: Weight 80.286 kg -GENERAL: The patient is alert and oriented x3, not in any acute distress. Well developed, well nourished. Patient looks very tired and exhausted with a dry mucous membranes HEENT: Pupils are round and equally reacting to light. EOMI. No scleral icterus. No conjunctival pallor. Normocephalic, atraumatic. No pharyngeal erythema. No thyromegaly. CARDIOVASCULAR: S1 and S2 present. No murmurs, rubs, or gallops. PULMONARY: Chest is clear to auscultation, no wheezing or crackles. -ABDOMEN: Soft, mild generalized tenderness, no rebound tenderness or guarding, nondistended, normoactive bowel sounds. No palpable organomegaly. MUSCULOSKELETAL: No joint swelling or deformity. Possible costovertebral angle tenderness on the left side EXTREMITIES: No cyanosis, clubbing, or pedal edema. NEUROLOGICAL: Gross neurological examination did not reveal any focal deficits. SKIN: No rashes. No petechiae Results CBC & Chem 7: 08/24/21 10:46 08/24/21 10:46 Labs: Abnormal Lab Results - Last 24 Hours (Table) 08/24/21 08/24/21 08/24/21 Range/Units 09:44 10:46 10:46 WBC 14.9 H (3.8-10.6) k/uL Hct 46.4 H (34.0-46.0) % Neutrophils # 12.1 H (1.3-7.7) k/uL Carbon Dioxide 8 L* (22-30) mmol/L BUN 19 H (7-17) mg/dL Glucose 574 H* (74-99) mg/dL POC Glucose (mg/dL) 517 H (75-99) mg/dL Calcium 10.4 H (8.4-10.2) mg/dL Phosphorus 7.0 H (2.5-4.5) mg/dL Total Protein 8.3 H (6.3-8.2) g/dL Urine Glucose (UA) (Negative) Urine Ketones (Negative) Urine Blood (Negative) Urine Mucus (None) /hpf 08/24/21 08/24/21 08/24/21 Range/Units 10:46 12:11 12:41 WBC (3.8-10.6) k/uL Hct (34.0-46.0) % Neutrophils # (1.3-7.7) k/uL Carbon Dioxide (22-30) mmol/L BUN (7-17) mg/dL Glucose (74-99) mg/dL POC Glucose (mg/dL) 568 H 498 H (75-99) mg/dL Calcium (8.4-10.2) mg/dL Phosphorus (2.5-4.5) mg/dL Total Protein (6.3-8.2) g/dL Urine Glucose (UA) 4+ H (Negative) Urine Ketones 4+ H (Negative) Urine Blood Moderate H (Negative) Urine Mucus Rare H (None) /hpf Assessment and Plan Assessment: Diabetic ketoacidosis Vaginal discharge Back pain with increased frequency of urination 1 diabetes mellitus with hyperglycemia Severe lethargy without confusion Dehydration secondary to above Coughing with yellow phlegm Plan: This is a pleasant 26 years old female who presents with DKA Discontinue insulin pump continue with insulin drip per protocol Check renal ultrasound 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 Continue same treatment. Continue with symptomatic treatment. Resume home medication. Monitor lytes and vitals. DVT and GI prophylaxis. Further recommendations depends on the clinical course of the patient DVT prophylaxis: Subcutaneous heparin GI Prophylaxis: Pepcid Prognosis is guarded
[2021-08-24 13:30] LABS: Glucose,Whole Blood 390 mg/dL (75-99)
[2021-08-24] MEDS ORDERED: NALOXONE 0.4 MG/ML 1 ML VIAL IV PRN (13:33)
[2021-08-24 13:50] LABS: Glucose,Whole Blood 331 mg/dL (75-99)
--- NOTE | 2021-08-24 14:05 | US ---
EXAMINATION TYPE: US renals and bladder DATE OF EXAM: 08/24/2021 COMPARISON: NONE CLINICAL HISTORY: back pain and increased urination frequency. Back pain and increased urination freq uency. EXAM MEASUREMENTS: Right Kidney: 13.2 x 6.5 x 5.4 cm Left Kidney: 13.1 x 5.9 x 5.8 cm Right Kidney: No hydronephrosis or nephrolithiasis. Left Kidney: No hydronephrosis or nephrolithiasis. Limited due to gas. Bladder: Appears anechoic Bilateral Jets seen: Yes No hydronephrosis or nephrolithiasis. IMPRESSION: No hydronephrosis or nephrolithiasis
[2021-08-24] MEDS ORDERED: SODIUM CHLORIDE 0.9% 1,000 ML IV ONE (14:40)
[2021-08-24 15:16] LABS: Glucose,Whole Blood 268 mg/dL (75-99)
[2021-08-24] MEDS: D5-0.45% NACL WITH KCL 20MEQ/L 1,000 ML IV SCH ×2 (15:35→22:57)
[2021-08-24 15:38] LABS: African American GFR (CKD) >90 (>60 ml/min/1.73 sqM); Anion Gap 18 mmol/L; Blood Urea Nitrogen 17 mg/dL (7-17); Carbon Dioxide 10 mmol/L (22-30); Chloride 111 mmol/L (98-107); Glucose 275 mg/dL (74-99); Non-African American GFR(CKD) >90 (>60 ml/min/1.73 sqM); Potassium 4.6 mmol/L (3.5-5.1); Sodium 139 mmol/L (137-145)
[2021-08-24 15:40] LABS: African American GFR (CKD) >90 (>60 ml/min/1.73 sqM); Anion Gap 15 mmol/L; Blood Urea Nitrogen 17 mg/dL (7-17); Carbon Dioxide 10 mmol/L (22-30); Chloride 113 mmol/L (98-107); Glucose 276 mg/dL (74-99); Non-African American GFR(CKD) >90 (>60 ml/min/1.73 sqM); Potassium 4.6 mmol/L (3.5-5.1); Sodium 138 mmol/L (137-145)
--- NOTE | 2021-08-24 15:51 | P.CNPUL ---
History of Present Illness Consult date: 08/24/21 Chief complaint: Hyperglycemia History of present illness: 26-year-old. Patient is currently in the intensive care unit for DKA. The patient is known to have type 1 diabetes mellitus. 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 This insulin pump was given to her approximately 5 days ago. The pump is functional and she has adequate insulin medication within the pump. She feels that the needle itself is causing that the skin is probably now working the patient has noted a rise in the blood sugars. She came into the emergency department having nausea and emesis and abdominal pain and back pain. This started today's back and the patient was becoming more lethargic and she was quite exhausted. She is known to have bronchial asthma. She was also coughing some yellowish sputum. No chest pain no symptoms of shortness of breath. No diarrhea. In the ED, the patient was found to be in DKA and the patient's initial serum bicarb was 8 with a gap of 28 creatinine of 0.7 white cell count of 14.5 and hemoglobin 15.1 and a blood sugar of 574. Serum acetone was positive, urine ketone was positive, urine glucose was +4, COVID 19 testing was negative, influenza A and B was negative. The patient was given a total of 2.5 L of IV fluids and I ordered a third and 32 bolus PHOs also on a maintenance IV fluids of 200 mL of normal saline and she is also on insulin drip at the rate of 8 units an hour. Most recent blood sugar is at 275 and the patient is going to be switched to D5 half-normal saline with 20 mEq of potassium at the rate of 150 mL an hour P most recent gap is 18 with a serum bicarb of 10. Mental status is complete a within normal limits pH is still tachycardic. Ultrasound abdomen was ordered by the medical team. test has been negative. She has been in previous bouts of DKA. Review of Systems Constitutional: Reports daytime sleepiness, Reports fatigue, Reports poor appetite, Reports weakness Eyes: bilateral blurred vision, bilateral decreased vision, denies as per HPI, denies bulging eye, denies diplopia, denies discharge, denies dry eye, denies irritation, denies itching, denies pain, denies photophobia, denies loss of natalie pheral vision, denies loss of vision, denies tunnel vision/blind spots Ears: deny: decreased hearing, ear discharge, earache, tinnitus Ears, nose, mouth and throat: Reports as per HPI Breasts: absent: as per HPI, change in shape, gynecomastia, masses, nipple discharge, pain, skin changes, swelling Cardiovascular: Reports as per HPI Respiratory: Reports as per HPI Gastrointestinal: Reports as per HPI, Reports abdominal pain, Reports nausea Genitourinary: Reports as per HPI Menstruation: Reports as per HPI Musculoskeletal: Reports as per HPI Musculoskeletal: absent: ankle pain, ankle stiffness, ankle swelling Integumentary: Reports as per HPI Neurological: Reports as per HPI Psychiatric: Reports as per HPI Endocrine: Reports excessive thirst, Reports fatigue, Reports high blood sugars, Reports polyuria Hematologic/Lymphatic: Reports as per HPI Allergic/Immunologic: Reports as per HPI 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 History of Any Multi-Drug Resistant Organisms: None Reported Past Surgical History: Orthopedic Surgery Past Anesthesia/Blood Transfusion Reactions: No Reported Reaction Past Psychological History: No Psychological Hx Reported Smoking Status: Current every day smoker Past Drug Use History: None Reported, Methamphetamine - Past Family History Mother History Unknown: Yes Father History Unknown: Yes Medications and Allergies Home Medications Medication Instructions Recorded Confirmed Type Albuterol Inhaler [Ventolin Hfa 1 puff INHALATION RT-Q6H PRN 08/24/21 08/24/21 History Inhaler] Fluticasone Propionate [Flovent 2 puff INHALATION RT-BID 08/24/21 08/24/21 History Hfa 220 mcg] Insulin Aspart (For Pump) [NovoLOG 0.01 unit SQ-PUMP CONTINUOUS 08/24/21 08/24/21 History (For Pump)] Allergies Allergy/AdvReac Type Severity Reaction Status Date / Time dulaglutide [From [facility]] Allergy Rash/Hives Verified 08/24/21 10:42 Physical Exam Vitals: Vital Signs Temp Pulse Resp BP Pulse Ox 08/24/21 12:18 113 H 18 117/54 100 08/24/21 09:55 98.2 F 115 H 22 131/78 98 Intake and Output 08/24/21 08/24/21 08/24/21 06:59 14:59 22:59 Intake Total 25.273 Balance 25.273 Intake: Intake, IV Titration 25.273 Amount Insulin Regular 100 unit 25.273 In Sodium Chloride 0.9% 100 ml @ 0.1 UNITS/KG/HR 8.109 mls/hr IV .[id number] [facility] Rx#:[id number] Other: Weight 80.286 kg Gen. appearance, comfortable, alert and oriented 3. No focal neurological deficits. Head exam was generally normal. There was no scleral icterus or corneal arcus. Mucous membranes were moist. HEENT: Pupils are round and equally reacting to light. EOMI. No scleral icterus. No conjunctival pallor. Normocephalic, atraumatic. No pharyngeal erythema. No thyromegaly. CARDIOVASCULAR: S1 and S2 present. No murmurs, rubs, or gallops. The patient is somewhat tachycardic and the heart rate is around 120, sinus PULMONARY: Chest is clear to auscultation, no wheezing or crackles. -ABDOMEN: Soft, mild generalized tenderness, no rebound tenderness or guarding, nondistended, normoactive bowel sounds. No palpable organomegaly. MUSCULOSKELETAL: No joint swelling or deformity. Possible costovertebral angle tenderness on the left side EXTREMITIES: No cyanosis, clubbing, or pedal edema. NEUROLOGICAL: Gross neurological examination did not reveal any focal deficits. SKIN: Examination of the skin revealed no evidence of significant rashes, suspicious appearing nevi or other concerning lesions. Results - Laboratory Findings CBC and BMP: 08/24/21 10:46 08/24/21 14:59 Abnormal lab findings: Abnormal Labs 08/24/21 08/24/21 08/24/21 09:44 10:46 10:46 WBC 14.9 H Hct 46.4 H Neutrophils # 12.1 H Chloride Carbon Dioxide 8 L* BUN 19 H Glucose 574 H* POC Glucose (mg/dL) 517 H Calcium 10.4 H Phosphorus 7.0 H Total Protein 8.3 H Urine Glucose (UA) Urine Ketones Urine Blood Urine Mucus 08/24/21 08/24/21 08/24/21 10:46 12:11 12:41 WBC Hct Neutrophils # Chloride Carbon Dioxide BUN Glucose POC Glucose (mg/dL) 568 H 498 H Calcium Phosphorus Total Protein Urine Glucose (UA) 4+ H Urine Ketones 4+ H Urine Blood Moderate H Urine Mucus Rare H 08/24/21 08/24/21 08/24/21 13:03 13:28 13:49 WBC Hct Neutrophils # Chloride Carbon Dioxide BUN Glucose POC Glucose (mg/dL) 390 H 390 H 331 H Calcium Phosphorus Total Protein Urine Glucose (UA) Urine Ketones Urine Blood Urine Mucus 08/24/21 08/24/21 08/24/21 14:59 14:59 15:15 WBC Hct Neutrophils # Chloride 113 H 111 H Carbon Dioxide 10 L 10 L BUN Glucose 276 H 275 H POC Glucose (mg/dL) 268 H Calcium Phosphorus Total Protein Urine Glucose (UA) Urine Ketones Urine Blood Urine Mucus Assessment and Plan Plan: 1 DKA with anion gap metabolic acidosis and hyperglycemia. The patient was recently switched from Lantus insulin to an insulin pump and since then she's been having issues with hyperglycemia and subsequently she went into full blown DKA. Currently she is on a insulin drip. She was also started on normal saline, given a total of 2.5 L bolus, a third liter is in progress and the patient on a maintenance normal saline at the rate of 200 mL an hour. She is being resuscitated IV fluids and she is also on an insulin drip and improvement in her blood sugar and anion gap has been noted 2 type 1 diabetes mellitus 3 sinus tachycardia secondary DKA 4 nausea and abdominal pain secondary to above. Ultrasound the abdomen showed no acute abnormalities 5 reactive leukocytosis 6 bronchial asthma currently inactive in stable Plan Continue the normal saline and switch this patient to D5 half-normal saline at the rate of 150 mL an hour once the blood sugar is below 250 Continue insulin drip per protocol A total of 3.5 L of boluses were given Monitor sinus tachycardia Hourly blood sugar CMP every 4 hours Check a hemoglobin A1c Will need some further advice from endocrinology regarding her ability to use an insulin pump and the functionality of an insulin pump Diabetic education IV Protonix Heparin subcu every 12 hours for DVT prophylaxis We'll continue to follow
[2021-08-24] MEDS: PANTOPRAZOLE 40 MG/10 ML VIAL IVP SCH (17:09)
[2021-08-24 17:10] LABS: Glucose,Whole Blood 240 mg/dL (75-99)
[2021-08-24 17:43] LABS: VBG PH 7.22 (7.31-7.41)
[2021-08-24 18:01] LABS: Glucose,Whole Blood 269 mg/dL (75-99)
[2021-08-24 18:58] LABS: Glucose,Whole Blood 197 mg/dL (75-99)
[2021-08-24 20:13] LABS: Glucose,Whole Blood 134 mg/dL (75-99)
[2021-08-24] MEDS: IBUPROFEN 400 MG TAB PO PRN (20:28)
[2021-08-24] MEDS: HEPARIN SODIUM,PORCINE/PF 5,000 UNIT/0.5 ML SYRINGE SQ SCH (20:28)
[2021-08-24 21:00] LABS: Glucose,Whole Blood 123 mg/dL (75-99)
[2021-08-24 21:54] LABS: Glucose,Whole Blood 126 mg/dL (75-99)
[2021-08-24] MEDS ORDERED: FLUCONAZOLE 150 MG TAB PO STA (22:06)
--- NOTE | 2021-08-24 22:06 | P.OBCN ---
History of Present Illness Consult date: 08/24/21 Requesting physician: Chandler E Sheet Reason for consult: other (Vaginal discharge) Chief complaint: Diabetic ketoacidosis History of present illness: This is a pleasant 26-year-old female who presents to the emergency room in diabetic ketoacidosis. She has a type I diabetic and has recently been converted to a insulin pump. She thinks the needle was not inserted into her skin properly and therefore she was not getting insulin that she needed. She does feel that overall her sugars have been improving since switching over to an insulin pump. She relays a two-year history of vaginal discharge that is white, thick, and it itches. She states her bottom is like hamburger. She has been treating with her primary care physician. Her primary care physician recommended that she get boric acid but not use it more than 3 days in a row. She has had no relief from this and it is expensive. She is not been treated with any other antifungals. She has attempted to establish with an ASSOCIATE PROFESSOR OF COUNSELING and has been unsuccessful. She is not currently sexually active and does not have a current partner. She has no history of STDs. She has a history of 2 vaginal deliveries. 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 History of Any Multi-Drug Resistant Organisms: None Reported Past Surgical History: Orthopedic Surgery Past Anesthesia/Blood Transfusion Reactions: No Reported Reaction Past Psychological History: No Psychological Hx Reported Smoking Status: Current every day smoker Past Drug Use History: None Reported, Methamphetamine - Past Family History Mother History Unknown: Yes Father History Unknown: Yes Medications and Allergies Home Medications Medication Instructions Recorded Confirmed Type Albuterol Inhaler [Ventolin Hfa 1 puff INHALATION RT-Q6H PRN 08/24/21 08/24/21 History Inhaler] Fluticasone Propionate [Flovent 2 puff INHALATION RT-BID 08/24/21 08/24/21 History Hfa 220 mcg] Insulin Aspart (For Pump) [NovoLOG 0.01 unit SQ-PUMP CONTINUOUS 08/24/21 08/24/21 History (For Pump)] Allergies Allergy/AdvReac Type Severity Reaction Status Date / Time dulaglutide [From [facility]] Allergy Rash/Hives Verified 08/24/21 10:42 Exam Osteopathic Statement: *. No significant issues noted on an osteopathic structural exam other than those noted in the History and Physical/Consult. Vital Signs Temp Pulse Resp BP Pulse Ox 08/24/21 21:00 97 15 102/60 96 08/24/21 20:00 98.0 F 95 17 102/61 95 08/24/21 19:00 95 14 111/61 97 08/24/21 18:00 92 10 L 87/51 98 08/24/21 17:00 98 20 113/68 98 08/24/21 16:20 98.1 F 109 H 11 L 113/68 97 08/24/21 16:10 110 H 15 08/24/21 16:02 118 H 12 08/24/21 15:50 98.4 F 118 H 18 121/64 96 08/24/21 12:18 113 H 18 117/54 100 08/24/21 09:55 98.2 F 115 H 22 131/78 98 Intake and Output 08/24/21 08/24/21 08/24/21 06:59 14:59 22:59 Intake Total 25.273 1106.834 Balance 25.273 1106.834 Intake: IV 1050 D5-0.45% NaCl with KCl 1050 20Meq/l 1,000 ml @ 150 mls/hr IV .[id number] [facility] Rx# :[id number] Intake, IV Titration 25.273 56.834 Amount Insulin Regular 100 unit 25.273 56.834 In Sodium Chloride 0.9% 100 ml @ 0.1 UNITS/KG/HR 8.109 mls/hr IV .[id number] [facility] Rx#:[id number] Other: # Voids 1 Weight 80.286 kg 80.286 kg Since the patient is currently in ICU, an adequate pelvic exam is unable to be performed. Results Result Diagrams: 08/24/21 10:46 08/24/21 14:59 Abnormal Lab Results - Last 24 Hours (Table) 08/24/21 08/24/21 08/24/21 Range/Units 09:44 10:46 10:46 WBC 14.9 H (3.8-10.6) k/uL Hct 46.4 H (34.0-46.0) % Neutrophils # 12.1 H (1.3-7.7) k/uL VBG pH (7.31-7.41) VBG HCO3 (24-28) mmol/L Chloride (98-107) mmol/L Carbon Dioxide 8 L* (22-30) mmol/L BUN 19 H (7-17) mg/dL Glucose 574 H* (74-99) mg/dL POC Glucose (mg/dL) 517 H (75-99) mg/dL Calcium 10.4 H (8.4-10.2) mg/dL Phosphorus 7.0 H (2.5-4.5) mg/dL Total Protein 8.3 H (6.3-8.2) g/dL Urine Glucose (UA) (Negative) Urine Ketones (Negative) Urine Blood (Negative) Urine Mucus (None) /hpf 08/24/21 08/24/21 08/24/21 Range/Units 10:46 12:11 12:41 WBC (3.8-10.6) k/uL Hct (34.0-46.0) % Neutrophils # (1.3-7.7) k/uL VBG pH (7.31-7.41) VBG HCO3 (24-28) mmol/L Chloride (98-107) mmol/L Carbon Dioxide (22-30) mmol/L BUN (7-17) mg/dL Glucose (74-99) mg/dL POC Glucose (mg/dL) 568 H 498 H (75-99) mg/dL Calcium (8.4-10.2) mg/dL Phosphorus (2.5-4.5) mg/dL Total Protein (6.3-8.2) g/dL Urine Glucose (UA) 4+ H (Negative) Urine Ketones 4+ H (Negative) Urine Blood Moderate H (Negative) Urine Mucus Rare H (None) /hpf 08/24/21 08/24/21 08/24/21 Range/Units 13:03 13:28 13:49 WBC (3.8-10.6) k/uL Hct (34.0-46.0) % Neutrophils # (1.3-7.7) k/uL VBG pH (7.31-7.41) VBG HCO3 (24-28) mmol/L Chloride (98-107) mmol/L Carbon Dioxide (22-30) mmol/L BUN (7-17) mg/dL Glucose (74-99) mg/dL POC Glucose (mg/dL) 390 H 390 H 331 H (75-99) mg/dL Calcium (8.4-10.2) mg/dL Phosphorus (2.5-4.5) mg/dL Total Protein (6.3-8.2) g/dL Urine Glucose (UA) (Negative) Urine Ketones (Negative) Urine Blood (Negative) Urine Mucus (None) /hpf 08/24/21 08/24/21 08/24/21 Range/Units 14:59 14:59 15:15 WBC (3.8-10.6) k/uL Hct (34.0-46.0) % Neutrophils # (1.3-7.7) k/uL VBG pH (7.31-7.41) VBG HCO3 (24-28) mmol/L Chloride 113 H 111 H (98-107) mmol/L Carbon Dioxide 10 L 10 L (22-30) mmol/L BUN (7-17) mg/dL Glucose 276 H 275 H (74-99) mg/dL POC Glucose (mg/dL) 268 H (75-99) mg/dL Calcium (8.4-10.2) mg/dL Phosphorus (2.5-4.5) mg/dL Total Protein (6.3-8.2) g/dL Urine Glucose (UA) (Negative) Urine Ketones (Negative) Urine Blood (Negative) Urine Mucus (None) /hpf 08/24/21 08/24/21 08/24/21 Range/Units 16:57 17:09 17:59 WBC (3.8-10.6) k/uL Hct (34.0-46.0) % Neutrophils # (1.3-7.7) k/uL VBG pH 7.22 L (7.31-7.41) VBG HCO3 14 L (24-28) mmol/L Chloride (98-107) mmol/L Carbon Dioxide (22-30) mmol/L BUN (7-17) mg/dL Glucose (74-99) mg/dL POC Glucose (mg/dL) 240 H 269 H (75-99) mg/dL Calcium (8.4-10.2) mg/dL Phosphorus (2.5-4.5) mg/dL Total Protein (6.3-8.2) g/dL Urine Glucose (UA) (Negative) Urine Ketones (Negative) Urine Blood (Negative) Urine Mucus (None) /hpf 08/24/21 08/24/21 08/24/21 Range/Units 18:56 20:11 20:59 WBC (3.8-10.6) k/uL Hct (34.0-46.0) % Neutrophils # (1.3-7.7) k/uL VBG pH (7.31-7.41) VBG HCO3 (24-28) mmol/L Chloride (98-107) mmol/L Carbon Dioxide (22-30) mmol/L BUN (7-17) mg/dL Glucose (74-99) mg/dL POC Glucose (mg/dL) 197 H 134 H 123 H (75-99) mg/dL Calcium (8.4-10.2) mg/dL Phosphorus (2.5-4.5) mg/dL Total Protein (6.3-8.2) g/dL Urine Glucose (UA) (Negative) Urine Ketones (Negative) Urine Blood (Negative) Urine Mucus (None) /hpf 08/24/21 Range/Units 21:53 WBC (3.8-10.6) k/uL Hct (34.0-46.0) % Neutrophils # (1.3-7.7) k/uL VBG pH (7.31-7.41) VBG HCO3 (24-28) mmol/L Chloride (98-107) mmol/L Carbon Dioxide (22-30) mmol/L BUN (7-17) mg/dL Glucose (74-99) mg/dL POC Glucose (mg/dL) 126 H (75-99) mg/dL Calcium (8.4-10.2) mg/dL Phosphorus (2.5-4.5) mg/dL Total Protein (6.3-8.2) g/dL Urine Glucose (UA) (Negative) Urine Ketones (Negative) Urine Blood (Negative) Urine Mucus (None) /hpf Assessment and Plan (1) Sernea vaginitis Current Visit: Yes Status: Acute Code(s): B37.3 - CANDIDIASIS OF VULVA AND VAGINA SNOMED Code(s): 68026141 Plan: Since vaginal candidiasis is the most likely diagnosis based on her history and her type 1 diabetes, I will start her on Diflucan 150 mg 1. If necessary this could be repeated in 3 days. She may follow-up with me in the office after discharge for follow-up appointment and adequate pelvic exam in approximately 2 weeks.
[2021-08-24 22:40] LABS: Potassium 4.3 mmol/L (3.5-5.1)
[2021-08-24 23:03] LABS: Glucose,Whole Blood 149 mg/dL (75-99)
[2021-08-24 23:51] LABS: Glucose,Whole Blood 159 mg/dL (75-99)
[2021-08-25 02:26] LABS: Glucose,Whole Blood 334 mg/dL (75-99)
[2021-08-25 03:22] LABS: Glucose,Whole Blood 283 mg/dL (75-99)
[2021-08-25 04:07] LABS: Glucose,Whole Blood 269 mg/dL (75-99)
[2021-08-25 05:03] LABS: Glucose,Whole Blood 259 mg/dL (75-99)
[2021-08-25] MEDS: D5-0.45% NACL WITH KCL 20MEQ/L 1,000 ML IV SCH ×2 (05:04→11:48)
[2021-08-25 06:33] LABS: Glucose,Whole Blood 258 mg/dL (75-99)
[2021-08-25 07:08] LABS: Glucose,Whole Blood 255 mg/dL (75-99)
[2021-08-25 07:59] LABS: Basophils % (A) 0 %; Eosinophils # (A) 0.1 k/uL (0-0.7); Eosinophils % (A) 1 %; HCT 36.1 % (34.0-46.0); Lymphocytes # (A) 1.6 k/uL (1.0-4.8); Lymphocytes % (A) 21 %; MCH 30.4 pg (25.0-35.0); MCHC 32.8 g/dL (31.0-37.0); MCV 92.7 fL (80.0-100.0); Mean Platelet Volume 7.4; Monocytes # (A) 0.4 k/uL (0-1.0); Monocytes % (A) 5 %; Neutrophils # (A) 5.5 k/uL (1.3-7.7); Neutrophils % (A) 71 %; Platelet Count 233 k/uL (150-450); RBC 3.89 m/uL (3.80-5.40); RDW 12.6 % (11.5-15.5); WBC 7.8 k/uL (3.8-10.6)
[2021-08-25 08:03] LABS: HGB 11.8 gm/dL (11.4-16.0)
[2021-08-25] MEDS: HEPARIN SODIUM,PORCINE/PF 5,000 UNIT/0.5 ML SYRINGE SQ SCH ×2 (08:07→20:34)
[2021-08-25] MEDS: PANTOPRAZOLE 40 MG/10 ML VIAL IVP SCH (08:07)
[2021-08-25 08:09] LABS: Glucose,Whole Blood 203 mg/dL (75-99)
[2021-08-25 08:30] LABS: African American GFR (CKD) >90 (>60 ml/min/1.73 sqM); Anion Gap 8 mmol/L; Blood Urea Nitrogen 11 mg/dL (7-17); Calcium 8.2 mg/dL (8.4-10.2); Carbon Dioxide 15 mmol/L (22-30); Chloride 111 mmol/L (98-107); Glucose 262 mg/dL (74-99); Non-African American GFR(CKD) >90 (>60 ml/min/1.73 sqM); Potassium 3.8 mmol/L (3.5-5.1); Sodium 134 mmol/L (137-145)
[2021-08-25] MEDS ORDERED: DEXTROSE 5% IN WATER 100 ML with AMIODARONE 150 MG IV ONE (08:41)
[2021-08-25] MEDS ORDERED: AMIODARONE 360 MG in DEXTROSE 5% IN WATER 200 ML IV ONE ×2 (08:41)
[2021-08-25] MEDS ORDERED: AMIODARONE 450 MG in DEXTROSE 5% IN WATER 250 ML IV SCH ×2 (08:45)
[2021-08-25 08:50] LABS: Glucose,Whole Blood 176 mg/dL (75-99)
[2021-08-25 09:02] LABS: HCG,Qualitative Serum Not Detected
[2021-08-25 10:04] LABS: Glucose,Whole Blood 101 mg/dL (75-99)
[2021-08-25] MEDS: IBUPROFEN 400 MG TAB PO PRN (10:06)
[2021-08-25 11:25] LABS: Glucose,Whole Blood 106 mg/dL (75-99)
[2021-08-25 12:01] LABS: Glucose,Whole Blood 123 mg/dL (75-99)
[2021-08-25 12:25] LABS: African American GFR (CKD) >90 (>60 ml/min/1.73 sqM); Anion Gap 3 mmol/L; Blood Urea Nitrogen 9 mg/dL (7-17); Calcium 8.2 mg/dL (8.4-10.2); Carbon Dioxide 22 mmol/L (22-30); Chloride 109 mmol/L (98-107); Glucose 120 mg/dL (74-99); Non-African American GFR(CKD) >90 (>60 ml/min/1.73 sqM); Potassium 3.9 mmol/L (3.5-5.1); Sodium 134 mmol/L (137-145)
[2021-08-25 13:03] LABS: Glucose,Whole Blood 149 mg/dL (75-99)
[2021-08-25] MEDS ORDERED: INSPUCOR MISCELLANE PRN (13:08)
[2021-08-25] MEDS ORDERED: INSULIN ASPART (NovoLOG) 100 UNIT/ML VIAL SQ PRN (13:08)
[2021-08-25] MEDS ORDERED: INSULIN PUMP BASAL RATES 1 EACH MISC MISCELLANE PRN (13:08)
--- NOTE | 2021-08-25 13:41 | P.PN ---
Subjective Progress Note Date: 08/25/21 08/23/2021, the patient is doing extremely well. The patient has no specific complaints. The patient is on D5 half-normal saline at the rate of 150 mL an hour the patient remains in 6 units of hour of insulin drip for blood sugar control. Meanwhile, clinically she is improved. Her tachycardia has recovered. No nausea. No vomiting. No emesis. No chest pain. No back pain. No altered mentation. No other significant events overnight. Note that the patient's most recent anion gap is at 8 and the serum bicarb was at 15. Based on that, I decided to continue the treatment for another 4-6 hours still the serum bicarb is above 20. Following that, the patient was going to be switched back to her insulin pump along with education. The patient's otherwise has no new complaints. The white cell count is up to 7.8 and a hemoglobin has dropped down to 11.8 and this is partly dilutional. No evidence of any bleeding. Her progesterone level is at 0.46. test has been negative. COVID 19 testing is been negative. Influenza screen has been negative. Ultrasound the abdomen was also negative for hydronephrosis or any other acute abnormalities. Objective - Vital Signs Vital signs: Vital Signs Temp 97.8 F 08/25/21 12:00 Pulse 81 08/25/21 13:00 Resp 15 08/25/21 13:00 BP 86/61 08/25/21 13:00 Pulse Ox 98 08/25/21 13:00 Intake & Output 08/24/21 08/25/21 08/25/21 18:59 06:59 18:59 Intake Total 708.529 8807.497 1077.400 Balance 074.491 7878.497 1077.400 Weight 80.286 kg 83.2 kg Intake: IV 750 1650 1050 D5-0.45% NaCl with KCl 750 1650 1050 20Meq/l 1,000 ml @ 150 mls/hr IV .[id number] [facility] Rx# :[id number] Intake, IV Titration 57.304 44.497 27.400 Amount Insulin Regular 100 unit 57.304 44.497 27.400 In Sodium Chloride 0.9% 100 ml @ 0.1 UNITS/KG/HR 8.109 mls/hr IV .[id number] [facility] Rx#:[id number] Other: # Voids 1 1 1 - Exam Gen. appearance, comfortable, alert and oriented 3. No focal neurological deficits. Head exam was generally normal. There was no scleral icterus or corneal arcus. Mucous membranes were moist. HEENT: Pupils are round and equally reacting to light. EOMI. No scleral icterus. No conjunctival pallor. Normocephalic, atraumatic. No pharyngeal erythema. No thyromegaly. CARDIOVASCULAR: S1 and S2 present. No murmurs, rubs, or gallops. The patient is somewhat tachycardic and the heart rate is around 120, sinus PULMONARY: Chest is clear to auscultation, no wheezing or crackles. -ABDOMEN: Soft, mild generalized tenderness, no rebound tenderness or guarding, nondistended, normoactive bowel sounds. No palpable organomegaly. MUSCULOSKELETAL: No joint swelling or deformity. Possible costovertebral angle tenderness on the left side EXTREMITIES: No cyanosis, clubbing, or pedal edema. NEUROLOGICAL: Gross neurological examination did not reveal any focal deficits. SKIN: Examination of the skin revealed no evidence of significant rashes, suspicious appearing nevi or other concerning lesions. - Labs CBC & Chem 7: 08/25/21 07:04 08/25/21 11:57 Labs: Abnormal Lab Results - Last 24 Hours (Table) 08/24/21 08/24/21 08/24/21 Range/Units 13:49 14:59 14:59 VBG pH (7.31-7.41) VBG HCO3 (24-28) mmol/L Sodium (137-145) mmol/L Chloride 113 H 111 H (98-107) mmol/L Carbon Dioxide 10 L 10 L (22-30) mmol/L Creatinine (0.52-1.04) mg/dL Glucose 276 H 275 H (74-99) mg/dL POC Glucose (mg/dL) 331 H (75-99) mg/dL Calcium (8.4-10.2) mg/dL Procalcitonin (0.02-0.09) ng/mL 08/24/21 08/24/21 08/24/21 Range/Units 15:15 16:57 17:09 VBG pH 7.22 L (7.31-7.41) VBG HCO3 14 L (24-28) mmol/L Sodium (137-145) mmol/L Chloride (98-107) mmol/L Carbon Dioxide (22-30) mmol/L Creatinine (0.52-1.04) mg/dL Glucose (74-99) mg/dL POC Glucose (mg/dL) 268 H 240 H (75-99) mg/dL Calcium (8.4-10.2) mg/dL Procalcitonin (0.02-0.09) ng/mL 08/24/21 08/24/21 08/24/21 Range/Units 17:59 18:56 20:11 VBG pH (7.31-7.41) VBG HCO3 (24-28) mmol/L Sodium (137-145) mmol/L Chloride (98-107) mmol/L Carbon Dioxide (22-30) mmol/L Creatinine (0.52-1.04) mg/dL Glucose (74-99) mg/dL POC Glucose (mg/dL) 269 H 197 H 134 H (75-99) mg/dL Calcium (8.4-10.2) mg/dL Procalcitonin (0.02-0.09) ng/mL 08/24/21 08/24/21 08/24/21 Range/Units 20:59 21:51 21:53 VBG pH (7.31-7.41) VBG HCO3 (24-28) mmol/L Sodium 132 L (137-145) mmol/L Chloride 109 H (98-107) mmol/L Carbon Dioxide 15 L (22-30) mmol/L Creatinine (0.52-1.04) mg/dL Glucose (74-99) mg/dL POC Glucose (mg/dL) 123 H 126 H (75-99) mg/dL Calcium (8.4-10.2) mg/dL Procalcitonin (0.02-0.09) ng/mL 08/24/21 08/24/21 08/25/21 Range/Units 23:01 23:49 02:24 VBG pH (7.31-7.41) VBG HCO3 (24-28) mmol/L Sodium (137-145) mmol/L Chloride (98-107) mmol/L Carbon Dioxide (22-30) mmol/L Creatinine (0.52-1.04) mg/dL Glucose (74-99) mg/dL POC Glucose (mg/dL) 149 H 159 H 334 H (75-99) mg/dL Calcium (8.4-10.2) mg/dL Procalcitonin (0.02-0.09) ng/mL 08/25/21 08/25/21 08/25/21 Range/Units 03:20 04:05 05:01 VBG pH (7.31-7.41) VBG HCO3 (24-28) mmol/L Sodium (137-145) mmol/L Chloride (98-107) mmol/L Carbon Dioxide (22-30) mmol/L Creatinine (0.52-1.04) mg/dL Glucose (74-99) mg/dL POC Glucose (mg/dL) 283 H 269 H 259 H (75-99) mg/dL Calcium (8.4-10.2) mg/dL Procalcitonin (0.02-0.09) ng/mL 08/25/21 08/25/21 08/25/21 Range/Units 06:31 07:04 07:04 VBG pH (7.31-7.41) VBG HCO3 (24-28) mmol/L Sodium 134 L (137-145) mmol/L Chloride 111 H (98-107) mmol/L Carbon Dioxide 15 L (22-30) mmol/L Creatinine (0.52-1.04) mg/dL Glucose 262 H (74-99) mg/dL POC Glucose (mg/dL) 258 H (75-99) mg/dL Calcium 8.2 L (8.4-10.2) mg/dL Procalcitonin 0.46 H (0.02-0.09) ng/mL 08/25/21 08/25/21 08/25/21 Range/Units 07:06 08:08 08:48 VBG pH (7.31-7.41) VBG HCO3 (24-28) mmol/L Sodium (137-145) mmol/L Chloride (98-107) mmol/L Carbon Dioxide (22-30) mmol/L Creatinine (0.52-1.04) mg/dL Glucose (74-99) mg/dL POC Glucose (mg/dL) 255 H 203 H 176 H (75-99) mg/dL Calcium (8.4-10.2) mg/dL Procalcitonin (0.02-0.09) ng/mL 08/25/21 08/25/21 08/25/21 Range/Units 10:03 11:23 11:57 VBG pH (7.31-7.41) VBG HCO3 (24-28) mmol/L Sodium 134 L (137-145) mmol/L Chloride 109 H (98-107) mmol/L Carbon Dioxide (22-30) mmol/L Creatinine 0.51 L (0.52-1.04) mg/dL Glucose 120 H (74-99) mg/dL POC Glucose (mg/dL) 101 H 106 H (75-99) mg/dL Calcium 8.2 L (8.4-10.2) mg/dL Procalcitonin (0.02-0.09) ng/mL 08/25/21 08/25/21 Range/Units 11:59 13:01 VBG pH (7.31-7.41) VBG HCO3 (24-28) mmol/L Sodium (137-145) mmol/L Chloride (98-107) mmol/L Carbon Dioxide (22-30) mmol/L Creatinine (0.52-1.04) mg/dL Glucose (74-99) mg/dL POC Glucose (mg/dL) 123 H 149 H (75-99) mg/dL Calcium (8.4-10.2) mg/dL Procalcitonin (0.02-0.09) ng/mL Assessment and Plan Plan: 1 DKA with anion gap metabolic acidosis and hyperglycemia. The patient was recently switched from Lantus insulin to an insulin pump and since then she's been having issues with hyperglycemia and subsequently she went into full blown DKA. Currently she is on a insulin drip. Clinically, the patient is improved and there is improvement in the anion gap which is also essentially closed and the patient serum bicarb is still around 16. We'll continue treatment for another 24 hours with a D5 half-normal infusion and insulin drip until the serum bicarb is above 20. 2 type 1 diabetes mellitus 3 sinus tachycardia secondary DKA 4 nausea and abdominal pain secondary to above. Ultrasound the abdomen showed no acute abnormalities 5 reactive leukocytosis 6 bronchial asthma currently inactive in stable Plan Continue the same treatment Monitor the anion gap Monitor serum bicarb Restart the patient insulin pump once the serum bicarb is above 20 Check a hemoglobin A1c Will need some further advice from endocrinology regarding her ability to use an insulin pump and the functionality of an insulin pump Diabetic education We will allow diet once the patient is normalized Heparin subcu every 12 hours for DVT prophylaxis We'll continue to follow
[2021-08-25 14:15] LABS: Glucose,Whole Blood 161 mg/dL (75-99)
[2021-08-25] MEDS: INSULIN REGULAR 100 UNIT in SODIUM CHLORIDE 0.9% 100 ML IV SCH (15:19)
[2021-08-25] MEDS: INSULIN PUMP MEAL BOLUS 1 UNIT MISC MISCELLANE SCH ×3 (17:12→23:04)
--- NOTE | 2021-08-25 22:55 | P.PN ---
Subjective This is a pleasant 26 years old female who presents complaining of from nausea vomiting and abdominal pain and back pain. Patient was started on insulin pump about 5 days ago. Patient is very lethargic, keeps eyes close most of the time, however with prompt questioning she answers all questions appropriately, she is fully awake and oriented but looks very exhausted and tired. She admits off nausea vomiting and abdominal pain of 2 days' duration but also cough and yellowish phlegm without chest pain for the last 3 days. She does not report diarrhea or dysuria but states she has increased frequency of urination. Also she is complaining of from back pain. Patient also has some vaginal discharge, as per patient her PCP diagnosed her with fungal infection as she states. She stated she was taken 35 units of long acting insulin twice daily and 10 units with meals prior to the insulin pump. She fits nicotine but not cooled or illicit drugs. 08/25/2021 Patient awake and alert, no chest pain or dyspnea but she has some mild to moderate headache without weakness or numbness. She thinks if she eats she will feel better, she is still on insulin drip and glucose control 200-250 . At home she was on Lantus 35 units twice a day and 10 units with meals of short-acting insulin. However her insulin pump is believed to stop working because of kinked needle. An order was given to replace the pump which was installed and we going to monitor patient glucose today and tomorrow. Patient denies any symptoms, no chest pain or dyspnea or coughing. No diarrhea. No abdominal pain or vomiting. No urinary symptoms. No fever and white cell count came back to normal. Vaginal discharge improved with fluconazole and patient was instructed to follow up with Dr. Lockhart in 2 weeks and she agrees She has a glucometer at home and she can check her sugar as instructed. Patient can move to the general medical floor was cleared by pulmonary team Renal ultrasound is negative for hydronephrosis. Objective - Vital Signs Vital signs: Vital Signs Temp 98.0 F 08/25/21 04:00 Pulse 85 08/25/21 07:00 Resp 17 08/25/21 07:00 BP 112/67 08/25/21 07:00 Pulse Ox 97 08/25/21 07:00 Intake & Output 08/24/21 08/25/21 08/25/21 18:59 06:59 18:59 Intake Total 032.837 3530.497 150 Balance 423.089 3254.497 150 Weight 80.286 kg 83.2 kg Intake: IV 750 1650 150 D5-0.45% NaCl with KCl 750 1650 150 20Meq/l 1,000 ml @ 150 mls/hr IV .[id number] [facility] Rx# :[id number] Intake, IV Titration 57.304 44.497 Amount Insulin Regular 100 unit 57.304 44.497 In Sodium Chloride 0.9% 100 ml @ 0.1 UNITS/KG/HR 8.109 mls/hr IV .[id number] [facility] Rx#:[id number] Other: # Voids 1 1 1 - Exam GENERAL: The patient is alert and oriented x3, not in any acute distress. Well developed, well nourished. HEENT: Pupils are round and equally reacting to light. EOMI. No scleral icterus. No conjunctival pallor. Normocephalic, atraumatic. No pharyngeal erythema. No thyromegaly. CARDIOVASCULAR: S1 and S2 present. No murmurs, rubs, or gallops. PULMONARY: Chest is clear to auscultation, no wheezing or crackles. ABDOMEN: Soft, nontender, nondistended, normoactive bowel sounds. No palpable organomegaly. MUSCULOSKELETAL: No joint swelling or deformity. EXTREMITIES: No cyanosis, clubbing, or pedal edema. NEUROLOGICAL: Gross neurological examination did not reveal any focal deficits. SKIN: No rashes. no petechiae. - Labs CBC & Chem 7: 08/25/21 07:04 08/25/21 11:57 Labs: Abnormal Lab Results - Last 24 Hours (Table) 08/24/21 08/24/21 08/24/21 Range/Units 09:44 10:46 10:46 WBC 14.9 H (3.8-10.6) k/uL Hct 46.4 H (34.0-46.0) % Neutrophils # 12.1 H (1.3-7.7) k/uL VBG pH (7.31-7.41) VBG HCO3 (24-28) mmol/L Sodium (137-145) mmol/L Chloride (98-107) mmol/L Carbon Dioxide 8 L* (22-30) mmol/L BUN 19 H (7-17) mg/dL Glucose 574 H* (74-99) mg/dL POC Glucose (mg/dL) 517 H (75-99) mg/dL Calcium 10.4 H (8.4-10.2) mg/dL Phosphorus 7.0 H (2.5-4.5) mg/dL Total Protein 8.3 H (6.3-8.2) g/dL Urine Glucose (UA) (Negative) Urine Ketones (Negative) Urine Blood (Negative) Urine Mucus (None) /hpf 08/24/21 08/24/21 08/24/21 Range/Units 10:46 12:11 12:41 WBC (3.8-10.6) k/uL Hct (34.0-46.0) % Neutrophils # (1.3-7.7) k/uL VBG pH (7.31-7.41) VBG HCO3 (24-28) mmol/L Sodium (137-145) mmol/L Chloride (98-107) mmol/L Carbon Dioxide (22-30) mmol/L BUN (7-17) mg/dL Glucose (74-99) mg/dL POC Glucose (mg/dL) 568 H 498 H (75-99) mg/dL Calcium (8.4-10.2) mg/dL Phosphorus (2.5-4.5) mg/dL Total Protein (6.3-8.2) g/dL Urine Glucose (UA) 4+ H (Negative) Urine Ketones 4+ H (Negative) Urine Blood Moderate H (Negative) Urine Mucus Rare H (None) /hpf 08/24/21 08/24/21 08/24/21 Range/Units 13:03 13:28 13:49 WBC (3.8-10.6) k/uL Hct (34.0-46.0) % Neutrophils # (1.3-7.7) k/uL VBG pH (7.31-7.41) VBG HCO3 (24-28) mmol/L Sodium (137-145) mmol/L Chloride (98-107) mmol/L Carbon Dioxide (22-30) mmol/L BUN (7-17) mg/dL Glucose (74-99) mg/dL POC Glucose (mg/dL) 390 H 390 H 331 H (75-99) mg/dL Calcium (8.4-10.2) mg/dL Phosphorus (2.5-4.5) mg/dL Total Protein (6.3-8.2) g/dL Urine Glucose (UA) (Negative) Urine Ketones (Negative) Urine Blood (Negative) Urine Mucus (None) /hpf 08/24/21 08/24/21 08/24/21 Range/Units 14:59 14:59 15:15 WBC (3.8-10.6) k/uL Hct (34.0-46.0) % Neutrophils # (1.3-7.7) k/uL VBG pH (7.31-7.41) VBG HCO3 (24-28) mmol/L Sodium (137-145) mmol/L Chloride 113 H 111 H (98-107) mmol/L Carbon Dioxide 10 L 10 L (22-30) mmol/L BUN (7-17) mg/dL Glucose 276 H 275 H (74-99) mg/dL POC Glucose (mg/dL) 268 H (75-99) mg/dL Calcium (8.4-10.2) mg/dL Phosphorus (2.5-4.5) mg/dL Total Protein (6.3-8.2) g/dL Urine Glucose (UA) (Negative) Urine Ketones (Negative) Urine Blood (Negative) Urine Mucus (None) /hpf 08/24/21 08/24/21 08/24/21 Range/Units 16:57 17:09 17:59 WBC (3.8-10.6) k/uL Hct (34.0-46.0) % Neutrophils # (1.3-7.7) k/uL VBG pH 7.22 L (7.31-7.41) VBG HCO3 14 L (24-28) mmol/L Sodium (137-145) mmol/L Chloride (98-107) mmol/L Carbon Dioxide (22-30) mmol/L BUN (7-17) mg/dL Glucose (74-99) mg/dL POC Glucose (mg/dL) 240 H 269 H (75-99) mg/dL Calcium (8.4-10.2) mg/dL Phosphorus (2.5-4.5) mg/dL Total Protein (6.3-8.2) g/dL Urine Glucose (UA) (Negative) Urine Ketones (Negative) Urine Blood (Negative) Urine Mucus (None) /hpf 08/24/21 08/24/21 08/24/21 Range/Units 18:56 20:11 20:59 WBC (3.8-10.6) k/uL Hct (34.0-46.0) % Neutrophils # (1.3-7.7) k/uL VBG pH (7.31-7.41) VBG HCO3 (24-28) mmol/L Sodium (137-145) mmol/L Chloride (98-107) mmol/L Carbon Dioxide (22-30) mmol/L BUN (7-17) mg/dL Glucose (74-99) mg/dL POC Glucose (mg/dL) 197 H 134 H 123 H (75-99) mg/dL Calcium (8.4-10.2) mg/dL Phosphorus (2.5-4.5) mg/dL Total Protein (6.3-8.2) g/dL Urine Glucose (UA) (Negative) Urine Ketones (Negative) Urine Blood (Negative) Urine Mucus (None) /hpf 08/24/21 08/24/21 08/24/21 Range/Units 21:51 21:53 23:01 WBC (3.8-10.6) k/uL Hct (34.0-46.0) % Neutrophils # (1.3-7.7) k/uL VBG pH (7.31-7.41) VBG HCO3 (24-28) mmol/L Sodium 132 L (137-145) mmol/L Chloride 109 H (98-107) mmol/L Carbon Dioxide 15 L (22-30) mmol/L BUN (7-17) mg/dL Glucose (74-99) mg/dL POC Glucose (mg/dL) 126 H 149 H (75-99) mg/dL Calcium (8.4-10.2) mg/dL Phosphorus (2.5-4.5) mg/dL Total Protein (6.3-8.2) g/dL Urine Glucose (UA) (Negative) Urine Ketones (Negative) Urine Blood (Negative) Urine Mucus (None) /hpf 08/24/21 08/25/21 08/25/21 Range/Units 23:49 02:24 03:20 WBC (3.8-10.6) k/uL Hct (34.0-46.0) % Neutrophils # (1.3-7.7) k/uL VBG pH (7.31-7.41) VBG HCO3 (24-28) mmol/L Sodium (137-145) mmol/L Chloride (98-107) mmol/L Carbon Dioxide (22-30) mmol/L BUN (7-17) mg/dL Glucose (74-99) mg/dL POC Glucose (mg/dL) 159 H 334 H 283 H (75-99) mg/dL Calcium (8.4-10.2) mg/dL Phosphorus (2.5-4.5) mg/dL Total Protein (6.3-8.2) g/dL Urine Glucose (UA) (Negative) Urine Ketones (Negative) Urine Blood (Negative) Urine Mucus (None) /hpf 08/25/21 08/25/21 08/25/21 Range/Units 04:05 05:01 06:31 WBC (3.8-10.6) k/uL Hct (34.0-46.0) % Neutrophils # (1.3-7.7) k/uL VBG pH (7.31-7.41) VBG HCO3 (24-28) mmol/L Sodium (137-145) mmol/L Chloride (98-107) mmol/L Carbon Dioxide (22-30) mmol/L BUN (7-17) mg/dL Glucose (74-99) mg/dL POC Glucose (mg/dL) 269 H 259 H 258 H (75-99) mg/dL Calcium (8.4-10.2) mg/dL Phosphorus (2.5-4.5) mg/dL Total Protein (6.3-8.2) g/dL Urine Glucose (UA) (Negative) Urine Ketones (Negative) Urine Blood (Negative) Urine Mucus (None) /hpf 08/25/21 Range/Units 07:06 WBC (3.8-10.6) k/uL Hct (34.0-46.0) % Neutrophils # (1.3-7.7) k/uL VBG pH (7.31-7.41) VBG HCO3 (24-28) mmol/L Sodium (137-145) mmol/L Chloride (98-107) mmol/L Carbon Dioxide (22-30) mmol/L BUN (7-17) mg/dL Glucose (74-99) mg/dL POC Glucose (mg/dL) 255 H (75-99) mg/dL Calcium (8.4-10.2) mg/dL Phosphorus (2.5-4.5) mg/dL Total Protein (6.3-8.2) g/dL Urine Glucose (UA) (Negative) Urine Ketones (Negative) Urine Blood (Negative) Urine Mucus (None) /hpf Assessment and Plan Assessment: Diabetic ketoacidosis Vaginal discharge Back pain with increased frequency of urination 1 diabetes mellitus with hyperglycemia Severe lethargy without confusion Dehydration secondary to above Coughing with yellow phlegm Plan: This is a pleasant 26 years old female who presents with DKA Levemir and NovoLog insulin Resume insulin pump and monitor glucose closely Pulmonary team consult Follow-up with [employer] upon discharge, patient informed and she agrees continue with IV hydration Labs and medication were reviewed.. Continue same treatment. Continue with symptomatic treatment. Resume home medication. Monitor lytes and vitals. DVT and GI prophylaxis. Further recommendations depends on the clinical course of the patient DVT prophylaxis: Subcutaneous heparin GI Prophylaxis: Pepcid
[2021-08-26 07:32] VITALS: BP 112/68; PULSE 74; RESP 14; TEMP 98.3
[2021-08-26] MEDS: HEPARIN SODIUM,PORCINE/PF 5,000 UNIT/0.5 ML SYRINGE SQ SCH (08:03)
[2021-08-26] MEDS: PANTOPRAZOLE 40 MG/10 ML VIAL IVP SCH (08:03)
[2021-08-26] MEDS: INSULIN PUMP MEAL BOLUS 1 UNIT MISC MISCELLANE SCH (08:03)
--- NOTE | 2021-08-26 12:35 | P.PN ---
Subjective Progress Note Date: 08/26/21 08/23/2021, the patient is doing extremely well. The patient has no specific complaints. The patient is on D5 half-normal saline at the rate of 150 mL an hour the patient remains in 6 units of hour of insulin drip for blood sugar control. Meanwhile, clinically she is improved. Her tachycardia has recovered. No nausea. No vomiting. No emesis. No chest pain. No back pain. No altered mentation. No other significant events overnight. Note that the patient's most recent anion gap is at 8 and the serum bicarb was at 15. Based on that, I decided to continue the treatment for another 4-6 hours still the serum bicarb is above 20. Following that, the patient was going to be switched back to her insulin pump along with education. The patient's otherwise has no new complaints. The white cell count is up to 7.8 and a hemoglobin has dropped down to 11.8 and this is partly dilutional. No evidence of any bleeding. Her progesterone level is at 0.46. test has been negative. COVID 19 testing is been negative. Influenza screen has been negative. Ultrasound the abdomen was also negative for hydronephrosis or any other acute abnormalities. On today's evaluation of 08/26/2021, the patient is doing well. No specific complaints. The patient is on a insulin pump. Anion gap metabolic acidosis recovered and the blood sugar is under adequate control for now. No nausea. No vomiting. No chest pain. No other new complaints. Objective - Vital Signs Vital signs: Vital Signs Temp 98.3 F 08/26/21 07:32 Pulse 74 08/26/21 07:32 Resp 14 08/26/21 07:32 BP 112/68 08/26/21 07:32 Pulse Ox 98 08/26/21 07:32 Intake & Output 08/25/21 08/26/21 08/26/21 18:59 06:59 18:59 Intake Total 1077.400 Balance 1077.400 Intake: IV 1050 D5-0.45% NaCl with KCl 1050 20Meq/l 1,000 ml @ 150 mls/hr IV .[id number] [facility] Rx# :[id number] Intake, IV Titration 27.400 Amount Insulin Regular 100 unit 27.400 In Sodium Chloride 0.9% 100 ml @ 0.1 UNITS/KG/HR 8.109 mls/hr IV .[id number] [facility] Rx#:[id number] Other: # Voids 1 3 - Exam Gen. appearance, comfortable, alert and oriented 3. No focal neurological deficits. Head exam was generally normal. There was no scleral icterus or corneal arcus. Mucous membranes were moist. HEENT: Pupils are round and equally reacting to light. EOMI. No scleral icterus. No conjunctival pallor. Normocephalic, atraumatic. No pharyngeal erythema. No thyromegaly. CARDIOVASCULAR: S1 and S2 present. No murmurs, rubs, or gallops. The patient is somewhat tachycardic and the heart rate is around 120, sinus PULMONARY: Chest is clear to auscultation, no wheezing or crackles. -ABDOMEN: Soft, mild generalized tenderness, no rebound tenderness or guarding, nondistended, normoactive bowel sounds. No palpable organomegaly. MUSCULOSKELETAL: No joint swelling or deformity. Possible costovertebral angle tenderness on the left side EXTREMITIES: No cyanosis, clubbing, or pedal edema. NEUROLOGICAL: Gross neurological examination did not reveal any focal deficits. SKIN: Examination of the skin revealed no evidence of significant rashes, suspicious appearing nevi or other concerning lesions. - Labs CBC & Chem 7: 08/25/21 07:04 08/25/21 11:57 Labs: Abnormal Lab Results - Last 24 Hours (Table) 08/25/21 08/25/21 Range/Units 13:01 14:14 POC Glucose (mg/dL) 149 H 161 H (75-99) mg/dL Assessment and Plan Plan: 1 DKA with anion gap metabolic acidosis , recovered and the patient has been placed back on her insulin pump 2 type 1 diabetes mellitus 3 sinus tachycardia secondary DKA, recovered 4 nausea and abdominal pain secondary to above. Ultrasound the abdomen showed no acute abnormalities, recovered 5 reactive leukocytosis, recovered 6 bronchial asthma currently inactive in stable Plan Discharge this patient home on an insulin pump DKA has recovered Diabetic education Discharge home today
--- NOTE | 2021-08-26 21:32 | P.DS ---
Providers Date of admission: 08/24/21 13:33 Attending physician: Chandler Warren MD Consults: 08/24/21 12:56 Consult Physician Routine Consulting Provider: Cynthia Bonds Consult Reason/Comments: vaginal discharge Do you want consulting provider notified?: Yes 08/24/21 13:58 Consult Physician Stat Consulting Provider: Massiel Soriano Consult Reason/Comments: DKA Do you want consulting provider notified?: Yes Primary care physician: Chaparro Barney Hospital Course: Diagnoses: Diabetic ketoacidosis Vaginal discharge Back pain with increased frequency of urination 1 diabetes mellitus with hyperglycemia Severe lethargy without confusion Dehydration secondary to above Coughing with yellow phlegm Hospital course: This is a pleasant 26 years old female who presents complaining of from nausea vomiting and abdominal pain and back pain. Patient was started on insulin pump about 5 days ago. But after about that the needle of the pump into the skin was kinked and pump was not working and patient presents with DKA. Admitted first to the ICU and management with insulin drip per protocol. Her glucose control and an anion gap closed and patient became asymptomatic. Insulin pump was reinserted and it was working since yesterday with a glucose controlled, patient remains asymptomatic and she satisfied and she thinks and wants to be discharged home today. Patient also evaluated by french polisher for vaginal discharge, received 1 dose of fluconazole and her symptoms improved. Patient was cleared for discharge by dedicated driver and french polisher Problems and management plan were discussed with the patient and he verbalized understanding and acceptance Patient was found stable and can be discharged home however he needs follow-up as an outpatient. Patient was instructed to follow up with PCP Dr. Barney within one week and patient agrees Patient was instructed to follow up with french polisher Dr. Gustafson in 2 weeks and she agrees. Also instructed to follow up with her kindergartners helper, she could not remember his name but she told me she has used contact information at home and she will call and make an appointment within 7-10 days Physical exam Gen: patient is a AAOx3, no distress CVS: S1-S2, RRR, no murmur Lungs: B/L CTA, no wheezing Abdomen: soft, no distention, no tenderness, positive bowel sounds Extremity: no leg edema or induration Time spent more than 35 minutes Plan - Discharge Summary Discharge Rx Participant: Yes New Discharge Prescriptions: Continue Insulin Aspart (For Pump) [NovoLOG (For Pump)] 0.01 unit SQ-PUMP CONTINUOUS Fluticasone Propionate [Flovent Hfa 220 mcg] 2 puff INHALATION RT-BID Albuterol Inhaler [Ventolin Hfa Inhaler] 1 puff INHALATION RT-Q6H PRN PRN Reason: Shortness Of Breath Discharge Medication List Albuterol Inhaler [Ventolin Hfa Inhaler] 1 puff INHALATION RT-Q6H PRN 08/24/21 [History] Fluticasone Propionate [Flovent Hfa 220 mcg] 2 puff INHALATION RT-BID 08/24/21 [History] Insulin Aspart (For Pump) [NovoLOG (For Pump)] 0.01 unit SQ-PUMP CONTINUOUS 08/24/21 [History] Follow up Appointment(s)/Referral(s): Cynthia Bonds DO [Doctor of Osteopathic Medicine] - 2 Weeks (french polisher) Chaparro Barney DO [Primary Care Provider] - 1-2 days Patient Instructions/Handouts: Diabetic Ketoacidosis (DC) Activity/Diet/Wound Care/Special Instructions: Low carbohydrate diet 1600 kcal per day Activity is restricted until you see your doctor We recommend he follow-up with your kindergartners helper as an outpatient, to have his contact information at home as you informed the medical team. Please call to make an appointment within 1 week To keep checking urine glucose 4 times a day before each meal and at bedtime, KEEP results in a log book and bring it to your doctor on your appointment date IF YOUR Glucose less than 70 or more than 400 then call 911 and come to emergency room Discharge Disposition: HOME SELF-CARE
== END 2021-08-26 13:53 | disposition home or self-care (01) | DRG 639 ==
LOC: EC 09:37 → 2SICU 13:33 → 4SSUR 08-25 16:29
PROVIDERS: ADMIT Internal Medicine; ATTEND Internal Medicine
DX: E10.10 Type 1 diabetes mellitus with ketoacidosis without coma (principal); B37.3 Candidiasis of vulva and vagina; E86.0 Dehydration; F17.200 Nicotine dependence, unspecified, uncomplicated; J45.909 Unspecified asthma, uncomplicated; Z79.4 Long term (current) use of insulin; Z96.41 Presence of insulin pump (external) (internal); R00.0 Tachycardia, unspecified; M54.9 Dorsalgia, unspecified; R05.9 Cough, unspecified; Z20.822 Contact with and (suspected) exposure to COVID-19
CPT/HCPCS: 36415; 76770; 80048; 80051; 80053; 81001; 81025; 82009; 82565; 82803; 82947; 83735; 84100; 84145; 84520; 84703; 85025; 87502; 87635; 93005; 96360; 96361; 99285